=== PATIENT | male | born 1950 | race African-American/Black ===

== ENCOUNTER 2017-01-15 10:31 | Emergency (ER) | payer MEDICARE, MEDICAID ==
[~2017-01-15] VITALS: Ht 175.3 cm; Wt 97.0 kg
[~2017-01-15 10:31] MED LIST: ADV250 IH; ALBU8HFA IH; AMLO10TA55 PO; ARIP10TA14 PO; ASPI-556 PO; COMBIH IH; OMEP20TA86 PO; SIMV40TA5 PO; ZOLP10TA6 PO
[2017-01-15] MEDS ORDERED: DIVA125T PO (10:48)
[2017-01-15] MEDS ORDERED: QUET200T PO (10:48)
[2017-01-15] MEDS ORDERED: CLON.1 PO (10:48)
[2017-01-15] MEDS ORDERED: LIRA0.6P SQ (10:48)
[2017-01-15] MEDS ORDERED: ASPI-1061 PO (10:48)
[2017-01-15] MEDS ORDERED: METF500T4 PO (10:48)
[2017-01-15] MEDS ORDERED: CANA100T PO (10:48)
[2017-01-15] MEDS ORDERED: TRAZ-144 PO (10:48)
[2017-01-15] MEDS ORDERED: AMLO2.5T PO (10:48)
[2017-01-15] MEDS ORDERED: CLON2 PO (10:48)
[2017-01-15] MEDS ORDERED: TAMS0.4C32 PO (10:48)
[2017-01-15 10:52] LABS: GLUCOSE,POINT OF CARE 125 MG/DL (70-110)
[2017-01-15 11:07] LABS: BASOPHILS # (AUTO) 0.06 K/uL (0.00-0.20); BASOPHILS % (AUTO) 0.5 % (0.0-2.0); EOSINOPHILS % (AUTO) 0.77 % (1.0-6.0); HEMATOCRIT 51.7 % (41-53); LYMPHOCYTES # (AUTO) 3.1 K/uL (1.0-4.8); LYMPHOCYTES % (AUTO) 24.7 % (22.0-44.0); MEAN CORPUSCULAR HEMOGLOBIN 29.7 pg (26.0-34.0); MEAN CORPUSCULAR HGB CONC 32.8 G/dL (31.0-37.0); MEAN CORPUSCULAR VOLUME 91 fL (80-100); MONOCYTES # (AUTO) 0.9 K/uL (0.1-1.0); NEUTROPHILS # (AUTO) 8.6 K/uL (1.8-7.7); NEUTROPHILS % (AUTO) 67.1 % (40.0-70.0); PLATELET COUNT (AUTO) 257 K/uL (150-450); RED BLOOD CELL COUNT(AUTO) 5.71 MIL/uL (4.50-5.90); RED CELL DISTRIBUTION WIDTH 14.3 % (11.5-14.5); WHITE BLOOD COUNT (AUTO) 12.7 K/uL (4.5-11.0)
[2017-01-15 11:16] LABS: ANION GAP 13 mmol/L (8-16); CALCIUM, TOTAL 9.5 mg/dL (8.8-10.5); CARBON DIOXIDE 24 mmol/L (22-29); CHLORIDE 103 mmol/L (98-107); CREATININE 1.02 mg/dL (0.60-1.30); GLOMERULAR FILTR. RATE CALC > 60 mL/min (>60); POTASSIUM 3.6 mmol/L (3.5-5.1); SODIUM SERUM 140 mmol/L (136-145); UREA NITROGEN, BLOOD 15 mg/dL (7-18)
[2017-01-15 11:22] LABS: PROTHROMBIN TIME 10.8 SEC (9.4-11.6)
[2017-01-15 11:35] LABS: B-TYPE NATRIURETIC PEPTIDE 89 pg/mL (0-100)
[2017-01-15 11:42] LABS: ALANINE AMINOTRANSFERASE 19 U/L (12-78); ASPARTATE AMINOTRANSFERASE 21 U/L (15-37); BILIRUBIN,TOTAL 1.5 mg/dL (0.1-1.0); CREATINE KINASE MB 2.5 ng/mL (0-5); CREATINE KINASE, TOTAL 242 U/L (39-308); TOTAL PROTEIN, SERUM 7.4 g/dL (6.4-8.2)
[2017-01-15 12:01] LABS: APPEARANCE,URINE CLOUDY (CLEAR); GLUCOSE, URINE (UA) >=1000 mg/dL (NEGATIVE); KETONES,URINE 40 mg/dL (NEGATIVE); LEUKOCYTE ESTERASE ,URINE NEGATIVE (NEGATIVE); OCCULT BLOOD,URINE SMALL (NEGATIVE); PROTEIN,URINE SEE CONFIRM (NEGATIVE)
[2017-01-15 12:03] LABS: ADD UA MICROSCOPIC YES
[2017-01-15 12:10] LABS: SULFOSALICYLIC ACID,URINE 4+ (Negative)
[2017-01-15 12:13] LABS: SQUAMOUS EPITHELIAL CELL,UR Moderate /LPF (None Seen); WBC,URINE 51-100 /HPF (0-5)
[2017-01-15] MEDS ORDERED: LEVOFLOXACIN 500 MG/D5% WATER 100 ML IV ONE (13:15)
[2017-01-15] MEDS ORDERED: SODIUM CHLORIDE 0.9% 1,000 ML IV ONE (13:15)
[2017-01-15] MEDS ORDERED: CefTRIAXone 1 GM/DEXTROSE 50 ML IV ONE (13:15)
[2017-01-15 16:02] VITALS: BP 110/78
== END 2017-01-15 17:19 | disposition home or self-care (01) ==
LOC: EMS 10:33
DX: N39.0 Urinary tract infection, site not specified (principal); F17.210 Nicotine dependence, cigarettes, uncomplicated; F31.9 Bipolar disorder, unspecified; F25.9 Schizoaffective disorder, unspecified; I10 Essential (primary) hypertension; E11.9 Type 2 diabetes mellitus without complications; Z88.2 Allergy status to sulfonamides; Z79.82 Long term (current) use of aspirin; Z79.899 Other long term (current) drug therapy
CPT/HCPCS: 36415; 70450; 71010; 80053; 81001; 82550; 82553; 82962; 83880; 84484; 85025; 85610; 85730; 87086; 93005; 96365; 96367; 99285; J0696; J1956; J7030

== ENCOUNTER 2017-04-28 12:00 | Inpatient (IN) | payer MEDICARE, MEDICAID ==
[~2017-04-28] VITALS: Ht 182.9 cm; Wt 74.8 kg
[~2017-04-28 12:00] MED LIST changes: -ADV250 IH; -AMLO10TA55 PO; +AMLO2.5T PO; -ARIP10TA14 PO; -ASPI-556 PO; +ASPI81TA33 PO; +CANA100T PO; +CLON-570 PO; +CLON2 PO; -COMBIH IH; +DIVA125T PO; +LIRA0.6P SQ; +METF500T4 PO; -OMEP20TA86 PO; +QUET200T PO; -SIMV40TA5 PO; +TAMS0.4C32 PO; +TRAZ-144 PO; -ZOLP10TA6 PO
[2017-04-28] MEDS ORDERED: METF500T4 PO (12:27)
[2017-04-28] MEDS ORDERED: ACETAMINOPHEN 1000 MG/ISO-OSM 100 ML IV ONE (12:45)
[2017-04-28] MEDS ORDERED: SODIUM CHLORIDE 0.9% 3,000 ML IV ONE (12:45)
[2017-04-28 13:19] LABS: BASOPHILS # (AUTO) 0.03 K/uL (0.00-0.20); BASOPHILS % (AUTO) 0.1 % (0.0-2.0); EOSINOPHILS # (AUTO) 0.01 K/uL (0.00-0.70); EOSINOPHILS % (AUTO) 0.06 % (1.0-6.0); HEMATOCRIT 47.6 % (41-53); HEMOGLOBIN 15.8 g/dL (13.5-17.5); LYMPHOCYTES # (AUTO) 1.9 K/uL (1.0-4.8); LYMPHOCYTES % (AUTO) 10.3 % (22.0-44.0); MEAN CORPUSCULAR HEMOGLOBIN 30.3 pg (26.0-34.0); MEAN CORPUSCULAR HGB CONC 33.2 G/dL (31.0-37.0); MEAN CORPUSCULAR VOLUME 91 fL (80-100); MONOCYTES # (AUTO) 1.1 K/uL (0.1-1.0); MONOCYTES % (AUTO) 5.9 % (2.0-9.0); NEUTROPHILS # (AUTO) 15.7 K/uL (1.8-7.7); NEUTROPHILS % (AUTO) 83.7 % (40.0-70.0); PLATELET COUNT (AUTO) 398 K/uL (150-450); RED BLOOD CELL COUNT(AUTO) 5.22 MIL/uL (4.50-5.90); RED CELL DISTRIBUTION WIDTH 15.9 % (11.5-14.5); WHITE BLOOD COUNT (AUTO) 18.7 K/uL (4.5-11.0)
[2017-04-28 13:20] LABS: RBC MORPHOLOGY COMMENT NORMAL RBC MORPH
[2017-04-28 13:54] LABS: ALANINE AMINOTRANSFERASE 18 U/L (12-78); ALBUMIN 2.5 g/dL (3.4-5.0); ANION GAP 11 mmol/L (8-16); ASPARTATE AMINOTRANSFERASE 32 U/L (15-37); BILIRUBIN,TOTAL 0.5 mg/dL (0.1-1.0); CARBON DIOXIDE 26 mmol/L (22-29); CHLORIDE 106 mmol/L (98-107); CREATININE 1.19 mg/dL (0.60-1.30); GLOMERULAR FILTR. RATE CALC > 60 mL/min (>60); POTASSIUM 4.3 mmol/L (3.5-5.1); SODIUM SERUM 143 mmol/L (136-145); TOTAL PROTEIN, SERUM 7.5 g/dL (6.4-8.2); UREA NITROGEN, BLOOD 30 mg/dL (7-18)
[2017-04-28 13:55] LABS: LACTIC ACID 3.1 mmol/L (0.4-2.0)
[2017-04-28] MEDS ORDERED: INSULIN REGULAR, HUMAN 100 UNITS/ML IVP ONE (14:15)
[2017-04-28 14:17] LABS: VALPROIC ACID < 3 mcg/mL (50-100)
[2017-04-28] MEDS ORDERED: WATER FOR INJECTION STERILE IV ONE ×2 (14:30)
[2017-04-28] MEDS ORDERED: ALTEPLASE PER STROKE PROTOCOL CLINICAL ONE ×2 (14:30)
[2017-04-28] MEDS ORDERED: ALTEPLASE IV ONE ×2 (14:30)
[2017-04-28 15:09] LABS: REFLEX LACTIC ACID? YES YES
[2017-04-28] MEDS ORDERED: CIPROFLOXACIN 400 MG/D5% WATER 200 ML IV ONE (15:45)
[2017-04-28 16:15] VITALS: BP 80/37
[2017-04-28] MEDS ORDERED: BISACODYL 10 MG RECTAL RECTAL SUPPOSITORY PR PRN (16:30)
[2017-04-28] MEDS ORDERED: ONDANSETRON HCL 4 MG/2 ML VIAL IVP PRN (16:30)
[2017-04-28] MEDS ORDERED: MAGNESIUM HYDROXIDE SUSPENSION 30 ML UDCUP PO PRN (16:30)
[2017-04-28] MEDS ORDERED: DEXTROSE 50%-WATER 25 GM/50 ML SYRINGE IVP PRN (16:30)
[2017-04-28] MEDS ORDERED: IPRATROPIUM BROMIDE 0.5 MG/2.5 ML NEB SOLUTION NEB PRN (16:30)
[2017-04-28] MEDS ORDERED: ZOLPIDEM TARTRATE 5 MG TABLET PO PRN (16:30)
[2017-04-28] MEDS ORDERED: ALBUTEROL SULFATE 2.5 MG/0.5 ML NEB SOLUTION NEB PRN (16:30)
[2017-04-28] MEDS ORDERED: VANCOMYCIN HCL 1 GM/D5% WATER 200 ML IV ONE (17:00)
[2017-04-28] MEDS ORDERED: INFLUENZA VIRUS VACCINE QVS 2017-18 (3YR+)/PF 60 MCG/0.5 ML SYRINGE IM ONE (17:15)
[2017-04-28] MEDS ORDERED: -PHARMACY VACCINE NOTE- MISC ONE ×2 (17:15)
[2017-04-28] MEDS: SODIUM CHLORIDE 0.9% 1,000 ML IV SCH (17:41)
[2017-04-28 17:49] LABS: GLUCOSE,POINT OF CARE 271 MG/DL (70-110)
[2017-04-28] MEDS: PIPERACILLIN/TAZO 3.375 GM/D5W 50 ML IV SCH (18:15)
[2017-04-28] MEDS: INSULIN ASPART 100 UNITS/ML SQ PRN ×2 (18:16→22:14)
[2017-04-28 20:00] VITALS: BP 112/76
[2017-04-28] MEDS: DOCUSATE SODIUM 100 MG CAPSULE PO SCH (21:00)
[2017-04-29] VITALS: BP 97/71
[2017-04-29] MEDS: PIPERACILLIN/TAZO 3.375 GM/D5W 50 ML IV SCH ×4 (00:29→17:26)
[2017-04-29] MEDS: HEPARIN SODIUM,PORCINE 5,000 UNITS/ML VIAL SQ SCH ×3 (00:29→16:58)
[2017-04-29] MEDS: ACETAMINOPHEN 650 MG RECTAL SUPPOSITORY PR PRN ×2 (02:58→06:10)
[2017-04-29 04:00] VITALS: BP 134/93
[2017-04-29] MEDS: SODIUM CHLORIDE 0.9% 1,000 ML IV SCH (05:10)
[2017-04-29 05:52] LABS: ALANINE AMINOTRANSFERASE 11 U/L (12-78); ALBUMIN 2.2 g/dL (3.4-5.0); ANION GAP 8 mmol/L (8-16); ASPARTATE AMINOTRANSFERASE 19 U/L (15-37); BILIRUBIN,TOTAL 0.7 mg/dL (0.1-1.0); CALCIUM, TOTAL 9.4 mg/dL (8.8-10.5); CARBON DIOXIDE 26 mmol/L (22-29); CHLORIDE 113 mmol/L (98-107); CREATININE 0.88 mg/dL (0.60-1.30); GLOMERULAR FILTR. RATE CALC > 60 mL/min (>60); POTASSIUM 3.7 mmol/L (3.5-5.1); SODIUM SERUM 147 mmol/L (136-145); TOTAL PROTEIN, SERUM 6.5 g/dL (6.4-8.2); UREA NITROGEN, BLOOD 23 mg/dL (7-18)
[2017-04-29 06:23] LABS: HEMATOCRIT 44.5 % (41-53); HEMOGLOBIN 14.6 g/dL (13.5-17.5); MEAN CORPUSCULAR HEMOGLOBIN 30.3 pg (26.0-34.0); MEAN CORPUSCULAR HGB CONC 32.7 G/dL (31.0-37.0); MEAN CORPUSCULAR VOLUME 93 fL (80-100); PLATELET COUNT (AUTO) 384 K/uL (150-450); RED CELL DISTRIBUTION WIDTH 16.2 % (11.5-14.5); WHITE BLOOD COUNT (AUTO) 23.2 K/uL (4.5-11.0)
[2017-04-29 06:52] LABS: GLUCOSE COMMENT 1 Received Meds; GLUCOSE,POINT OF CARE 284 MG/DL (70-110)
[2017-04-29 06:53] LABS: GLUCOSE COMMENT 1 Received Meds; GLUCOSE,POINT OF CARE 253 MG/DL (70-110)
[2017-04-29] MEDS: INSULIN ASPART 100 UNITS/ML SQ PRN ×3 (07:12→21:57)
[2017-04-29 08:00] VITALS: BP 121/89
[2017-04-29] MEDS ORDERED: VANCOMYCIN HCL 1 GM/D5% WATER 200 ML IV SCH (08:00)
[2017-04-29] MEDS ORDERED: ASPIRIN 81 MG EC TABLET PO SCH (09:00)
[2017-04-29] MEDS: DOCUSATE SODIUM 100 MG CAPSULE PO SCH ×2 (09:00→21:00)
[2017-04-29] MEDS: OXYGEN THERAPY IH SCH ×2 (09:01→21:46)
[2017-04-29] MEDS: VANCOMYCIN HCL 1.25 GM in DEXTROSE 5%-WATER 250 ML IV SCH ×2 (09:10→21:45)
[2017-04-29] MEDS: PANTOPRAZOLE SODIUM 40 MG/VIAL IVP SCH (09:12)
[2017-04-29 10:17] LABS: BAND NEUTROPHILS % (MANUAL) 16 % (1-5); LYMPHOCYTES % (MANUAL) 14 % (22-44); RBC MORPHOLOGY COMMENT NORMAL RBC MORPH; TOTAL CELLS COUNTED 100
[2017-04-29] MEDS: MULTIVITAMINS WITH MINERALS, THERAPEUTIC 15 ML UDCUP NG SCH (10:45)
[2017-04-29 12:00] VITALS: BP 121/89
[2017-04-29 16:00] VITALS: BP 96/70
[2017-04-29] MEDS ORDERED: MetroNIDAZOLE 500 MG TABLET PO SCH (18:30)
[2017-04-29] MEDS ORDERED: SODIUM CHLORIDE 0.45% 1,000 ML IV ONE (18:30)
[2017-04-29 19:41] LABS: THYROID STIMULATING HORMONE 1.44 uIU/mL (0.36-3.74)
[2017-04-29 20:00] VITALS: BP 154/124
[2017-04-29 20:07] LABS: GLUCOSE COMMENT 1 Received Meds; GLUCOSE,POINT OF CARE 182 MG/DL (70-110)
[2017-04-29 20:13] LABS: GLUCOSE COMMENT 1 Received Meds; GLUCOSE,POINT OF CARE 222 MG/DL (70-110)
[2017-04-29 20:13] LABS: GLUCOSE,POINT OF CARE 224 MG/DL (70-110)
[2017-04-30] VITALS: BP 91/61
[2017-04-30] MEDS: VANCOMYCIN HCL 250 MG/5 ML SOLUTION ORAL.SYG PO SCH ×4 (00:04→17:31)
[2017-04-30] MEDS: HEPARIN SODIUM,PORCINE 5,000 UNITS/ML VIAL SQ SCH ×3 (00:04→17:01)
[2017-04-30 02:24] LABS: APPEARANCE,URINE CLOUDY (CLEAR); GLUCOSE, URINE (UA) NEGATIVE (NEGATIVE); KETONES,URINE NEGATIVE (NEGATIVE); LEUKOCYTE ESTERASE ,URINE TRACE (NEGATIVE); OCCULT BLOOD,URINE NEGATIVE (NEGATIVE); PROTEIN,URINE SEE CONFIRM (NEGATIVE)
[2017-04-30 02:32] LABS: SULFOSALICYLIC ACID,URINE 3+ (Negative)
[2017-04-30 02:33] LABS: RBC,URINE 0-2 /HPF (0-2); SQUAMOUS EPITHELIAL CELL,UR Many /LPF (None Seen)
[2017-04-30 02:34] LABS: HYALINE CASTS, URINE 0-2 /LPF (None Seen)
[2017-04-30 04:00] VITALS: BP 110/63
[2017-04-30 05:02] LABS: BASOPHILS # (AUTO) 0.04 K/uL (0.00-0.20); BASOPHILS % (AUTO) 0.2 % (0.0-2.0); EOSINOPHILS # (AUTO) 0.11 K/uL (0.00-0.70); EOSINOPHILS % (AUTO) 0.48 % (1.0-6.0); HEMATOCRIT 39.6 % (41-53); HEMOGLOBIN 13.2 g/dL (13.5-17.5); LYMPHOCYTES # (AUTO) 1.7 K/uL (1.0-4.8); LYMPHOCYTES % (AUTO) 7.5 % (22.0-44.0); MEAN CORPUSCULAR HEMOGLOBIN 30.7 pg (26.0-34.0); MEAN CORPUSCULAR HGB CONC 33.3 G/dL (31.0-37.0); MEAN CORPUSCULAR VOLUME 92 fL (80-100); MONOCYTES # (AUTO) 0.3 K/uL (0.1-1.0); MONOCYTES % (AUTO) 1.1 % (2.0-9.0); NEUTROPHILS # (AUTO) 20.6 K/uL (1.8-7.7); PLATELET COUNT (AUTO) 341 K/uL (150-450); RED BLOOD CELL COUNT(AUTO) 4.29 MIL/uL (4.50-5.90); RED CELL DISTRIBUTION WIDTH 16.1 % (11.5-14.5); WHITE BLOOD COUNT (AUTO) 22.7 K/uL (4.5-11.0)
[2017-04-30 05:11] LABS: ANION GAP 9 mmol/L (8-16); CALCIUM, TOTAL 9.2 mg/dL (8.8-10.5); CARBON DIOXIDE 24 mmol/L (22-29); CHLORIDE 112 mmol/L (98-107); GLOMERULAR FILTR. RATE CALC > 60 mL/min (>60); POTASSIUM 3.5 mmol/L (3.5-5.1); SODIUM SERUM 145 mmol/L (136-145); UREA NITROGEN, BLOOD 25 mg/dL (7-18)
[2017-04-30] MEDS: MetroNIDAZOLE 500 MG/NACL 100 ML IV SCH ×3 (06:08→22:22)
[2017-04-30] MEDS: INSULIN ASPART 100 UNITS/ML SQ PRN ×3 (06:30→17:34)
[2017-04-30 06:47] LABS: NEUTROPHILS % (AUTO) 90.7 % (40.0-70.0)
[2017-04-30 08:00] VITALS: BP 112/72
[2017-04-30] MEDS: ASPIRIN 81 MG EC TABLET PO SCH (09:14)
[2017-04-30] MEDS: DOCUSATE SODIUM 100 MG CAPSULE PO SCH ×2 (09:14→21:00)
[2017-04-30] MEDS: PANTOPRAZOLE SODIUM 40 MG/VIAL IVP SCH (09:17)
[2017-04-30] MEDS: OXYGEN THERAPY IH SCH ×2 (09:17→21:38)
[2017-04-30] MEDS: AMINO ACIDS/PROTEIN HYDROLYS 30 ML TUBE PO SCH ×2 (09:17→13:37)
[2017-04-30 09:33] LABS: RBC MORPHOLOGY COMMENT NORMAL RBC MORPH
[2017-04-30] MEDS: MULTIVITAMINS WITH MINERALS, THERAPEUTIC 15 ML UDCUP NG SCH (11:55)
[2017-04-30 12:00] VITALS: BP 90/62
[2017-04-30 12:42] LABS: GLUCOSE,POINT OF CARE 244 MG/DL (70-110)
[2017-04-30 12:42] LABS: GLUCOSE,POINT OF CARE 167 MG/DL (70-110)
[2017-04-30] MEDS: ACETAMINOPHEN 325 MG TABLET PO PRN ×2 (13:42→17:45)
[2017-04-30 16:00] VITALS: BP 108/60
[2017-04-30 19:52] LABS: GLUCOSE,POINT OF CARE 221 MG/DL (70-110)
[2017-04-30 20:00] VITALS: BP 95/60
[2017-05-01] VITALS (11 sets, daily range): BP systolic 94–124; BP diastolic 62–91
[2017-05-01] MEDS: VANCOMYCIN HCL 250 MG/5 ML SOLUTION ORAL.SYG PO SCH ×4 (00:23→17:21)
[2017-05-01] MEDS: HEPARIN SODIUM,PORCINE 5,000 UNITS/ML VIAL SQ SCH ×3 (00:23→15:23)
[2017-05-01] MEDS: ACETAMINOPHEN 325 MG TABLET PO PRN ×6 (00:40→20:58)
[2017-05-01] MEDS: INSULIN ASPART 100 UNITS/ML SQ PRN ×4 (00:41→19:55)
[2017-05-01 02:57] LABS: GLUCOSE,POINT OF CARE 259 MG/DL (70-110)
[2017-05-01 02:57] LABS: GLUCOSE COMMENT 1 Received Meds; GLUCOSE,POINT OF CARE 215 MG/DL (70-110)
[2017-05-01 05:02] LABS: HEMATOCRIT 36.9 % (41-53); HEMOGLOBIN 12.2 g/dL (13.5-17.5); MEAN CORPUSCULAR HEMOGLOBIN 30.7 pg (26.0-34.0); MEAN CORPUSCULAR HGB CONC 33.1 G/dL (31.0-37.0); MEAN CORPUSCULAR VOLUME 93 fL (80-100); PLATELET COUNT (AUTO) 327 K/uL (150-450); RED BLOOD CELL COUNT(AUTO) 3.98 MIL/uL (4.50-5.90); RED CELL DISTRIBUTION WIDTH 15.5 % (11.5-14.5); WHITE BLOOD COUNT (AUTO) 21.7 K/uL (4.5-11.0)
[2017-05-01 05:08] LABS: ANION GAP 5 mmol/L (8-16); CALCIUM, TOTAL 8.8 mg/dL (8.8-10.5); CARBON DIOXIDE 29 mmol/L (22-29); CHLORIDE 110 mmol/L (98-107); CREATININE 0.85 mg/dL (0.60-1.30); GLOMERULAR FILTR. RATE CALC > 60 mL/min (>60); POTASSIUM 3.6 mmol/L (3.5-5.1); SODIUM SERUM 144 mmol/L (136-145); UREA NITROGEN, BLOOD 25 mg/dL (7-18)
[2017-05-01] MEDS: MetroNIDAZOLE 500 MG/NACL 100 ML IV SCH ×3 (05:12→22:43)
[2017-05-01 05:37] LABS: BAND NEUTROPHILS % (MANUAL) 12 % (1-5); LYMPHOCYTES % (MANUAL) 8 % (22-44); RBC MORPHOLOGY COMMENT NORMAL RBC MORPH; TOTAL CELLS COUNTED 100
[2017-05-01 05:40] LABS: LACTIC ACID 2.8 mmol/L (0.4-2.0)
[2017-05-01 06:50] LABS: REFLEX LACTIC ACID? YES YES
[2017-05-01] MEDS: DOCUSATE SODIUM 100 MG CAPSULE PO SCH ×2 (08:00→20:57)
[2017-05-01] MEDS: PANTOPRAZOLE SODIUM 40 MG/VIAL IVP SCH (08:00)
[2017-05-01] MEDS: MULTIVITAMINS WITH MINERALS, THERAPEUTIC 15 ML UDCUP NG SCH (08:00)
[2017-05-01] MEDS: ASPIRIN 81 MG EC TABLET PO SCH (08:01)
[2017-05-01 08:12] LABS: GLUCOSE COMMENT 1 Received Meds; GLUCOSE,POINT OF CARE 229 MG/DL (70-110)
[2017-05-01] MEDS: AMINO ACIDS/PROTEIN HYDROLYS 30 ML TUBE PO SCH ×2 (08:36→11:56)
[2017-05-01] MEDS: OXYGEN THERAPY IH SCH ×2 (08:38→20:57)
[2017-05-01] MEDS ORDERED: SODIUM CHLORIDE 0.9% 0 ML ONE (20:50)
[2017-05-01] MEDS ORDERED: IOVERSOL 320 MG/ML 100 ML VIAL ONE (20:50)
[2017-05-01] MEDS ORDERED: BARIUM SULFATE 0.1% SUSPENSION 450 ML BOTTLE ONE (20:50)
[2017-05-01] MEDS ORDERED: SODIUM CHLORIDE 0.9% 250 ML IV ONE (22:45)
[2017-05-01] MEDS ORDERED: SODIUM CHLORIDE 0.9% 100 ML ONE (23:16)
[2017-05-01] MEDS ORDERED: IOVERSOL 350 MG/ML 100 ML VIAL ONE (23:16)
[2017-05-02] VITALS (7 sets, daily range): BP systolic 108–117; BP diastolic 75–87
[2017-05-02] MEDS: HEPARIN SODIUM,PORCINE 5,000 UNITS/ML VIAL SQ SCH ×3 (01:00→16:59)
[2017-05-02] MEDS: VANCOMYCIN HCL 250 MG/5 ML SOLUTION ORAL.SYG PO SCH ×4 (01:00→17:57)
[2017-05-02] MEDS: INSULIN ASPART 100 UNITS/ML SQ PRN ×4 (01:01→17:58)
[2017-05-02] MEDS: ACETAMINOPHEN 325 MG TABLET PO PRN (04:44)
[2017-05-02 05:09] LABS: BASOPHILS % (AUTO) 0.1 % (0.0-2.0); EOSINOPHILS % (AUTO) 1.4 % (1.0-6.0); HEMATOCRIT 38.8 % (41-53); HEMOGLOBIN 12.8 g/dL (13.5-17.5); LYMPHOCYTES % (AUTO) 4.9 % (22.0-44.0); MEAN CORPUSCULAR HEMOGLOBIN 30.5 pg (26.0-34.0); MEAN CORPUSCULAR HGB CONC 33.1 G/dL (31.0-37.0); MEAN CORPUSCULAR VOLUME 92 fL (80-100); MONOCYTES # (AUTO) 0.1 K/uL (0.1-1.0); MONOCYTES % (AUTO) 0.7 % (2.0-9.0); NEUTROPHILS # (AUTO) 18.5 K/uL (1.8-7.7); PLATELET COUNT (AUTO) 326 K/uL (150-450); RED BLOOD CELL COUNT(AUTO) 4.21 MIL/uL (4.50-5.90); RED CELL DISTRIBUTION WIDTH 15.4 % (11.5-14.5); WHITE BLOOD COUNT (AUTO) 19.9 K/uL (4.5-11.0)
[2017-05-02 05:15] LABS: ANION GAP 7 mmol/L (8-16); CALCIUM, TOTAL 9.1 mg/dL (8.8-10.5); CARBON DIOXIDE 27 mmol/L (22-29); CHLORIDE 107 mmol/L (98-107); CREATININE 0.65 mg/dL (0.60-1.30); GLOMERULAR FILTR. RATE CALC > 60 mL/min (>60); POTASSIUM 3.4 mmol/L (3.5-5.1); SODIUM SERUM 141 mmol/L (136-145); UREA NITROGEN, BLOOD 15 mg/dL (7-18)
[2017-05-02] MEDS: MetroNIDAZOLE 500 MG/NACL 100 ML IV SCH ×3 (05:21→21:17)
[2017-05-02 05:26] LABS: NEUTROPHILS % (AUTO) 92.9 % (40.0-70.0)
[2017-05-02 06:08] LABS: RBC MORPHOLOGY COMMENT NORMAL RBC MORPH
[2017-05-02 08:17] LABS: GLUCOSE COMMENT 1 Received Meds; GLUCOSE,POINT OF CARE 295 MG/DL (70-110)
[2017-05-02 08:17] LABS: GLUCOSE,POINT OF CARE 249 MG/DL (70-110)
[2017-05-02 08:22] LABS: GLUCOSE COMMENT 1 Received Meds; GLUCOSE,POINT OF CARE 236 MG/DL (70-110)
[2017-05-02 08:22] LABS: GLUCOSE COMMENT 1 Received Meds; GLUCOSE,POINT OF CARE 193 MG/DL (70-110)
[2017-05-02] MEDS: DOCUSATE SODIUM 100 MG CAPSULE PO SCH ×2 (09:00→20:39)
[2017-05-02] MEDS: PANTOPRAZOLE SODIUM 40 MG/VIAL IVP SCH (09:38)
[2017-05-02] MEDS: ASPIRIN 81 MG EC TABLET PO SCH (09:39)
[2017-05-02] MEDS: MULTIVITAMINS WITH MINERALS, THERAPEUTIC 15 ML UDCUP NG SCH (09:39)
[2017-05-02] MEDS: AMINO ACIDS/PROTEIN HYDROLYS 30 ML TUBE PO SCH ×2 (09:40→12:36)
[2017-05-02] MEDS: OXYGEN THERAPY IH SCH ×2 (09:41→20:38)
[2017-05-02 14:43] LABS: GLUCOSE COMMENT 1 Juice/Food/D50 Given; GLUCOSE,POINT OF CARE 278 MG/DL (70-110)
[2017-05-02] MEDS ORDERED: POTASSIUM CHLORIDE 20 MEQ ER TABLET PO PRN (17:45)
[2017-05-02] MEDS: POTASSIUM CHL 10 MEQ/WATER 50 ML IV PRN ×3 (17:57→20:39)
[2017-05-02 19:00] LABS: ABG A-A DIFF O2 134.9 mmHg (10-20.0); ABG BASE EXCESS 2.3 mmol/L (-2.0-3.0); ABG HCO3 26.8 mmol/L (22.0-26.0); ABG OXYHEMOGLOBIN 94.9 % (94.0-100.0); ABG PCO2 34 mmHg (35-45); ABG PH 7.494 (7.35-7.450); ALLEN TEST, BLOOD GAS POS
[2017-05-02] MEDS ORDERED: SODIUM CHLORIDE 0.9% 250 ML IV ONE (20:36)
[2017-05-02 23:32] LABS: GLUCOSE,POINT OF CARE 280 MG/DL (70-110)
[2017-05-03] VITALS: BP 117/87
[2017-05-03] MEDS: ACETAMINOPHEN 325 MG TABLET PO PRN ×2 (00:06→06:47)
[2017-05-03] MEDS: HEPARIN SODIUM,PORCINE 5,000 UNITS/ML VIAL SQ SCH ×3 (00:06→16:36)
[2017-05-03] MEDS: VANCOMYCIN HCL 250 MG/5 ML SOLUTION ORAL.SYG PO SCH ×4 (00:06→18:21)
[2017-05-03] MEDS: INSULIN ASPART 100 UNITS/ML SQ PRN ×4 (00:07→18:22)
[2017-05-03 04:00] VITALS: BP 132/96
[2017-05-03 05:45] LABS: APPEARANCE,URINE CLOUDY (CLEAR); GLUCOSE, URINE (UA) >=1000 mg/dL (NEGATIVE); KETONES,URINE NEGATIVE (NEGATIVE); LEUKOCYTE ESTERASE ,URINE NEGATIVE (NEGATIVE); OCCULT BLOOD,URINE NEGATIVE (NEGATIVE); PROTEIN,URINE SEE CONFIRM (NEGATIVE)
[2017-05-03 05:49] LABS: ADD UA MICROSCOPIC YES
[2017-05-03 06:04] LABS: RBC,URINE 0-2 /HPF (0-2); SULFOSALICYLIC ACID,URINE 1+ (Negative); WBC,URINE 0-2 /HPF (0-5)
[2017-05-03] MEDS: MetroNIDAZOLE 500 MG/NACL 100 ML IV SCH ×3 (06:45→22:15)
[2017-05-03 06:47] LABS: GLUCOSE COMMENT 1 Received Meds; GLUCOSE,POINT OF CARE 271 MG/DL (70-110)
[2017-05-03 08:00] VITALS: BP 136/86
[2017-05-03] MEDS: DOCUSATE SODIUM 100 MG CAPSULE PO SCH ×2 (08:52→21:00)
[2017-05-03] MEDS: MULTIVITAMINS WITH MINERALS, THERAPEUTIC 15 ML UDCUP NG SCH (08:59)
[2017-05-03] MEDS: PANTOPRAZOLE SODIUM 40 MG/VIAL IVP SCH (08:59)
[2017-05-03] MEDS: AMINO ACIDS/PROTEIN HYDROLYS 30 ML TUBE PO SCH ×2 (08:59→12:54)
[2017-05-03] MEDS: OXYGEN THERAPY IH SCH ×2 (08:59→22:16)
[2017-05-03] MEDS: ASPIRIN 81 MG EC TABLET PO SCH (09:01)
[2017-05-03 11:28] LABS: HEMATOCRIT 39.7 % (41-53); HEMOGLOBIN 12.8 g/dL (13.5-17.5); MEAN CORPUSCULAR HGB CONC 32.3 G/dL (31.0-37.0); MEAN CORPUSCULAR VOLUME 93 fL (80-100); PLATELET COUNT (AUTO) 299 K/uL (150-450); RED BLOOD CELL COUNT(AUTO) 4.27 MIL/uL (4.50-5.90); RED CELL DISTRIBUTION WIDTH 15.7 % (11.5-14.5); WHITE BLOOD COUNT (AUTO) 16.9 K/uL (4.5-11.0)
[2017-05-03 11:39] LABS: ANION GAP 5 mmol/L (8-16); CALCIUM, TOTAL 8.6 mg/dL (8.8-10.5); CARBON DIOXIDE 28 mmol/L (22-29); CHLORIDE 107 mmol/L (98-107); GLOMERULAR FILTR. RATE CALC > 60 mL/min (>60); SODIUM SERUM 140 mmol/L (136-145); UREA NITROGEN, BLOOD 15 mg/dL (7-18)
[2017-05-03 11:51] LABS: BAND NEUTROPHILS % (MANUAL) 23 % (1-5); LYMPHOCYTES % (MANUAL) 9 % (22-44); RBC MORPHOLOGY COMMENT NORMAL RBC MORPH; TOTAL CELLS COUNTED 100
[2017-05-03 12:00] VITALS: BP 136/86
[2017-05-03 14:23] LABS: GLUCOSE,POINT OF CARE 284 MG/DL (70-110)
[2017-05-03 16:00] VITALS: BP 135/78
[2017-05-03] MEDS ORDERED: SODIUM CHLORIDE 0.9% 0 ML IV ONE (17:50)
[2017-05-03] MEDS ORDERED: SODIUM CHLORIDE 0.9% 1,000 ML IV ONE (19:33)
[2017-05-03 20:00] VITALS: BP 92/60
[2017-05-04] VITALS (8 sets, daily range): BP systolic 111–138; BP diastolic 75–91
[2017-05-04] MEDS ORDERED: SODIUM CHLORIDE 0.9% 250 ML IV ONE (00:34)
[2017-05-04] MEDS: HEPARIN SODIUM,PORCINE 5,000 UNITS/ML VIAL SQ SCH ×3 (01:36→16:53)
[2017-05-04] MEDS: VANCOMYCIN HCL 250 MG/5 ML SOLUTION ORAL.SYG PO SCH ×4 (01:36→17:35)
[2017-05-04] MEDS: INSULIN ASPART 100 UNITS/ML SQ PRN ×3 (01:37→13:00)
[2017-05-04 05:25] LABS: HEMATOCRIT 38.2 % (41-53); HEMOGLOBIN 12.7 g/dL (13.5-17.5); MEAN CORPUSCULAR HEMOGLOBIN 30.4 pg (26.0-34.0); MEAN CORPUSCULAR HGB CONC 33.2 G/dL (31.0-37.0); MEAN CORPUSCULAR VOLUME 91 fL (80-100); PLATELET COUNT (AUTO) 358 K/uL (150-450); RED BLOOD CELL COUNT(AUTO) 4.18 MIL/uL (4.50-5.90); RED CELL DISTRIBUTION WIDTH 15.4 % (11.5-14.5); WHITE BLOOD COUNT (AUTO) 14.6 K/uL (4.5-11.0)
[2017-05-04 05:27] LABS: ANION GAP 5 mmol/L (8-16); CALCIUM, TOTAL 8.8 mg/dL (8.8-10.5); CARBON DIOXIDE 28 mmol/L (22-29); CHLORIDE 105 mmol/L (98-107); GLOMERULAR FILTR. RATE CALC > 60 mL/min (>60); POTASSIUM 3.7 mmol/L (3.5-5.1); SODIUM SERUM 138 mmol/L (136-145); UREA NITROGEN, BLOOD 11 mg/dL (7-18)
[2017-05-04] MEDS: MetroNIDAZOLE 500 MG/NACL 100 ML IV SCH ×3 (06:15→23:29)
[2017-05-04 07:27] LABS: BAND NEUTROPHILS % (MANUAL) 4 % (1-5); LYMPHOCYTES % (MANUAL) 9 % (22-44); REACTIVE LYMPHOCYTES 1 % (0-0); TOTAL CELLS COUNTED 100
[2017-05-04] MEDS: DOCUSATE SODIUM 100 MG CAPSULE PO SCH ×2 (08:02→20:05)
[2017-05-04] MEDS: MULTIVITAMINS WITH MINERALS, THERAPEUTIC 15 ML UDCUP NG SCH (08:38)
[2017-05-04] MEDS: AMINO ACIDS/PROTEIN HYDROLYS 30 ML TUBE PO SCH ×2 (08:38→12:55)
[2017-05-04] MEDS: PANTOPRAZOLE SODIUM 40 MG/VIAL IVP SCH (08:38)
[2017-05-04] MEDS: ASPIRIN 81 MG EC TABLET PO SCH (08:38)
[2017-05-04] MEDS: OXYGEN THERAPY IH SCH ×2 (12:55→20:04)
[2017-05-04] MEDS ORDERED: DEXTROSE 50%-WATER 25 GM/50 ML SYRINGE IVP PRN (16:00)
[2017-05-04 17:33] LABS: GLUCOSE,POINT OF CARE 266 MG/DL (70-110)
[2017-05-04] MEDS: INSULIN REGULAR, HUMAN 100 UNITS/ML SQ PRN ×2 (17:36→23:35)
[2017-05-04] MEDS: HYPROMELLOSE 0.5% 15 ML OPHTHALMIC SOLUTION OU SCH (18:45)
[2017-05-04] MEDS: DIVALPROEX SODIUM 125 MG DR TABLET PO SCH (20:04)
[2017-05-04] MEDS: CloNIDine HCL 0.1 MG TABLET PO SCH (20:04)
[2017-05-04] MEDS ORDERED: SODIUM CHLORIDE 0.9% 1,000 ML IV ONE (20:33)
[2017-05-04] MEDS: ACETAMINOPHEN 325 MG TABLET PO PRN (23:29)
[2017-05-05] MEDS: VANCOMYCIN HCL 250 MG/5 ML SOLUTION ORAL.SYG PO SCH ×4 (00:11→17:11)
[2017-05-05] MEDS: HEPARIN SODIUM,PORCINE 5,000 UNITS/ML VIAL SQ SCH ×3 (00:11→17:10)
[2017-05-05 04:19] VITALS: BP 121/85
[2017-05-05] MEDS: HYPROMELLOSE 0.5% 15 ML OPHTHALMIC SOLUTION OU SCH ×4 (05:21→17:10)
[2017-05-05] MEDS: MetroNIDAZOLE 500 MG/NACL 100 ML IV SCH ×3 (05:24→21:12)
[2017-05-05] MEDS: INSULIN REGULAR, HUMAN 100 UNITS/ML SQ PRN ×3 (05:25→18:35)
[2017-05-05] MEDS ORDERED: CANAGLIFLOZIN 100 MG TABLET PO SCH (06:30)
[2017-05-05 06:32] LABS: BASOPHILS # (AUTO) 0.04 K/uL (0.00-0.20); BASOPHILS % (AUTO) 0.3 % (0.0-2.0); EOSINOPHILS # (AUTO) 0.19 K/uL (0.00-0.70); HEMATOCRIT 36.4 % (41-53); LYMPHOCYTES # (AUTO) 1.7 K/uL (1.0-4.8); LYMPHOCYTES % (AUTO) 11.5 % (22.0-44.0); MEAN CORPUSCULAR HEMOGLOBIN 30.3 pg (26.0-34.0); MEAN CORPUSCULAR HGB CONC 32.9 G/dL (31.0-37.0); MEAN CORPUSCULAR VOLUME 92 fL (80-100); MONOCYTES # (AUTO) 0.9 K/uL (0.1-1.0); MONOCYTES % (AUTO) 5.9 % (2.0-9.0); NEUTROPHILS # (AUTO) 11.9 K/uL (1.8-7.7); PLATELET COUNT (AUTO) 400 K/uL (150-450); RED BLOOD CELL COUNT(AUTO) 3.95 MIL/uL (4.50-5.90); RED CELL DISTRIBUTION WIDTH 15.5 % (11.5-14.5); WHITE BLOOD COUNT (AUTO) 14.7 K/uL (4.5-11.0)
[2017-05-05 06:49] LABS: ANION GAP 6 mmol/L (8-16); CALCIUM, TOTAL 8.5 mg/dL (8.8-10.5); CARBON DIOXIDE 27 mmol/L (22-29); CHLORIDE 102 mmol/L (98-107); CREATININE 0.52 mg/dL (0.60-1.30); GLOMERULAR FILTR. RATE CALC > 60 mL/min (>60); POTASSIUM 3.7 mmol/L (3.5-5.1); SODIUM SERUM 135 mmol/L (136-145); UREA NITROGEN, BLOOD 13 mg/dL (7-18)
[2017-05-05 08:04] VITALS: BP 123/85
[2017-05-05 08:27] LABS: GLUCOSE,POINT OF CARE 252 MG/DL (70-110)
[2017-05-05 08:28] LABS: GLUCOSE COMMENT 1 Received Meds; GLUCOSE,POINT OF CARE 267 MG/DL (70-110)
[2017-05-05 08:28] LABS: GLUCOSE COMMENT 1 Received Meds; GLUCOSE,POINT OF CARE 254 MG/DL (70-110)
[2017-05-05 08:28] LABS: GLUCOSE,POINT OF CARE 232 MG/DL (70-110)
[2017-05-05] MEDS ORDERED: LIRAGLUTIDE 1.8 MG SQ SCH (09:00)
[2017-05-05] MEDS: DOCUSATE SODIUM 100 MG CAPSULE PO SCH ×2 (09:00→20:26)
[2017-05-05] MEDS: TAMSULOSIN HCL 0.4 MG CAPSULE PO SCH (09:09)
[2017-05-05] MEDS: PANTOPRAZOLE SODIUM 40 MG/VIAL IVP SCH (09:09)
[2017-05-05] MEDS: MULTIVITAMINS WITH MINERALS, THERAPEUTIC 15 ML UDCUP NG SCH (09:09)
[2017-05-05] MEDS: ClonazePAM 0.5 MG TABLET PO SCH (09:10)
[2017-05-05] MEDS: ASPIRIN 81 MG EC TABLET PO SCH (09:10)
[2017-05-05] MEDS: DIVALPROEX SODIUM 125 MG DR TABLET PO SCH ×3 (09:10→20:27)
[2017-05-05] MEDS: AmLODIPine BESYLATE 2.5 MG TABLET PO SCH (09:20)
[2017-05-05] MEDS: OXYGEN THERAPY IH SCH ×2 (09:20→20:27)
[2017-05-05] MEDS: AMINO ACIDS/PROTEIN HYDROLYS 30 ML TUBE PO SCH ×2 (10:27→12:52)
[2017-05-05 11:19] VITALS: BP 126/78
[2017-05-05] MEDS: CloNIDine HCL 0.1 MG TABLET PO SCH ×2 (12:52→20:27)
[2017-05-05 15:47] LABS: GLUCOSE,POINT OF CARE 267 MG/DL (70-110)
[2017-05-05 16:29] VITALS: BP 115/71
[2017-05-05 20:03] VITALS: BP 139/64
[2017-05-05] MEDS: ACETAMINOPHEN 325 MG TABLET PO PRN (21:14)
[2017-05-05 23:33] VITALS: BP 132/78
[2017-05-06] MEDS: HYPROMELLOSE 0.5% 15 ML OPHTHALMIC SOLUTION OU SCH ×4 (00:34→17:40)
[2017-05-06] MEDS: VANCOMYCIN HCL 250 MG/5 ML SOLUTION ORAL.SYG PO SCH ×4 (00:34→17:41)
[2017-05-06] MEDS: INSULIN REGULAR, HUMAN 100 UNITS/ML SQ PRN ×4 (00:35→18:33)
[2017-05-06] MEDS: HEPARIN SODIUM,PORCINE 5,000 UNITS/ML VIAL SQ SCH ×3 (00:43→16:42)
[2017-05-06 04:18] VITALS: BP 141/79
[2017-05-06] MEDS: MetroNIDAZOLE 500 MG/NACL 100 ML IV SCH ×3 (05:32→23:10)
[2017-05-06] MEDS: AMINO ACIDS/PROTEIN HYDROLYS 30 ML TUBE PO SCH ×2 (08:00→13:05)
[2017-05-06] MEDS: OXYGEN THERAPY IH SCH ×2 (08:00→20:24)
[2017-05-06 08:51] VITALS: BP 134/81
[2017-05-06 10:04] LABS: GLUCOSE COMMENT 1 Received Meds; GLUCOSE,POINT OF CARE 303 MG/DL (70-110)
[2017-05-06] MEDS: DIVALPROEX SODIUM 125 MG DR TABLET PO SCH ×3 (10:24→20:24)
[2017-05-06] MEDS: DOCUSATE SODIUM 100 MG CAPSULE PO SCH ×2 (10:24→20:25)
[2017-05-06] MEDS: PANTOPRAZOLE SODIUM 40 MG/VIAL IVP SCH (10:24)
[2017-05-06] MEDS: CloNIDine HCL 0.1 MG TABLET PO SCH ×2 (10:24→20:25)
[2017-05-06] MEDS: MULTIVITAMINS WITH MINERALS, THERAPEUTIC 15 ML UDCUP NG SCH (10:24)
[2017-05-06] MEDS: ASPIRIN 81 MG EC TABLET PO SCH (10:25)
[2017-05-06] MEDS: TAMSULOSIN HCL 0.4 MG CAPSULE PO SCH (10:25)
[2017-05-06] MEDS: ClonazePAM 0.5 MG TABLET PO SCH (10:25)
[2017-05-06 10:34] LABS: GLUCOSE COMMENT 1 Received Meds; GLUCOSE,POINT OF CARE 329 MG/DL (70-110)
[2017-05-06 10:37] LABS: GLUCOSE COMMENT 1 Received Meds; GLUCOSE,POINT OF CARE 284 MG/DL (70-110)
[2017-05-06 10:37] LABS: GLUCOSE COMMENT 1 Received Meds; GLUCOSE,POINT OF CARE 258 MG/DL (70-110)
[2017-05-06 12:41] VITALS: BP 110/72
[2017-05-06] MEDS: AmLODIPine BESYLATE 2.5 MG TABLET PO SCH (13:05)
[2017-05-06 16:15] VITALS: BP 103/65
[2017-05-06 19:56] VITALS: BP 99/65
[2017-05-06] MEDS: ACETAMINOPHEN 325 MG TABLET PO PRN (20:25)
[2017-05-07 00:12] VITALS: BP 122/76
[2017-05-07 00:38] LABS: GLUCOSE COMMENT 1 Received Meds; GLUCOSE,POINT OF CARE 296 MG/DL (70-110)
[2017-05-07] MEDS: HEPARIN SODIUM,PORCINE 5,000 UNITS/ML VIAL SQ SCH (00:52)
[2017-05-07] MEDS: HYPROMELLOSE 0.5% 15 ML OPHTHALMIC SOLUTION OU SCH ×4 (00:52→18:18)
[2017-05-07] MEDS: VANCOMYCIN HCL 250 MG/5 ML SOLUTION ORAL.SYG PO SCH ×4 (00:52→18:18)
[2017-05-07] MEDS: INSULIN REGULAR, HUMAN 100 UNITS/ML SQ PRN ×4 (01:01→18:19)
[2017-05-07 01:02] LABS: GLUCOSE COMMENT 1 Received Meds; GLUCOSE,POINT OF CARE 296 MG/DL (70-110)
[2017-05-07 04:45] VITALS: BP 119/78
[2017-05-07] MEDS ORDERED: SODIUM CHLORIDE 0.9% IRRIG BTL 1,000 ML IRRIG ONE (04:57)
[2017-05-07] MEDS: MetroNIDAZOLE 500 MG/NACL 100 ML IV SCH ×3 (06:28→21:44)
[2017-05-07 07:57] VITALS: BP 125/77
[2017-05-07 08:05] LABS: BASOPHILS # (AUTO) 0.04 K/uL (0.00-0.20); BASOPHILS % (AUTO) 0.2 % (0.0-2.0); EOSINOPHILS # (AUTO) 0.17 K/uL (0.00-0.70); EOSINOPHILS % (AUTO) 0.76 % (1.0-6.0); HEMATOCRIT 38.7 % (41-53); HEMOGLOBIN 12.7 g/dL (13.5-17.5); LYMPHOCYTES # (AUTO) 1.4 K/uL (1.0-4.8); LYMPHOCYTES % (AUTO) 6.2 % (22.0-44.0); MEAN CORPUSCULAR HGB CONC 32.9 G/dL (31.0-37.0); MEAN CORPUSCULAR VOLUME 91 fL (80-100); MONOCYTES # (AUTO) 0.2 K/uL (0.1-1.0); MONOCYTES % (AUTO) 0.9 % (2.0-9.0); NEUTROPHILS # (AUTO) 20.1 K/uL (1.8-7.7); PLATELET COUNT (AUTO) 371 K/uL (150-450); RED BLOOD CELL COUNT(AUTO) 4.24 MIL/uL (4.50-5.90); RED CELL DISTRIBUTION WIDTH 15.7 % (11.5-14.5); WHITE BLOOD COUNT (AUTO) 21.9 K/uL (4.5-11.0)
[2017-05-07 08:09] LABS: RBC MORPHOLOGY COMMENT NORMAL RBC MORPH
[2017-05-07 08:10] LABS: ANION GAP 6 mmol/L (8-16); CALCIUM, TOTAL 8.6 mg/dL (8.8-10.5); CARBON DIOXIDE 28 mmol/L (22-29); CHLORIDE 101 mmol/L (98-107); CREATININE 0.54 mg/dL (0.60-1.30); GLOMERULAR FILTR. RATE CALC > 60 mL/min (>60); SODIUM SERUM 135 mmol/L (136-145); UREA NITROGEN, BLOOD 9 mg/dL (7-18)
[2017-05-07 08:16] LABS: ALANINE AMINOTRANSFERASE 8 U/L (12-78); ALBUMIN 1.6 g/dL (3.4-5.0); ASPARTATE AMINOTRANSFERASE 23 U/L (15-37); BILIRUBIN,TOTAL 0.2 mg/dL (0.1-1.0)
[2017-05-07] MEDS: OXYGEN THERAPY IH SCH ×2 (09:05→20:04)
[2017-05-07] MEDS: AMINO ACIDS/PROTEIN HYDROLYS 30 ML TUBE PO SCH ×2 (09:05→12:24)
[2017-05-07] MEDS: MULTIVITAMINS WITH MINERALS, THERAPEUTIC 15 ML UDCUP NG SCH (09:23)
[2017-05-07 09:24] LABS: GLUCOSE COMMENT 1 Received Meds; GLUCOSE,POINT OF CARE 267 MG/DL (70-110)
[2017-05-07] MEDS: ASPIRIN 81 MG EC TABLET PO SCH (09:24)
[2017-05-07] MEDS: TAMSULOSIN HCL 0.4 MG CAPSULE PO SCH (09:24)
[2017-05-07] MEDS: CloNIDine HCL 0.1 MG TABLET PO SCH ×2 (09:24→21:39)
[2017-05-07] MEDS: AmLODIPine BESYLATE 2.5 MG TABLET PO SCH (09:24)
[2017-05-07] MEDS: DOCUSATE SODIUM 100 MG CAPSULE PO SCH ×2 (09:24→09:53)
[2017-05-07] MEDS: ClonazePAM 0.5 MG TABLET PO SCH (09:24)
[2017-05-07] MEDS: DIVALPROEX SODIUM 125 MG DR TABLET PO SCH ×2 (09:24→17:02)
[2017-05-07] MEDS: PANTOPRAZOLE SODIUM 40 MG/VIAL IVP SCH (09:25)
[2017-05-07] MEDS ORDERED: MORPHINE SULFATE 2 MG/ML SYRINGE IM ONE (09:30)
[2017-05-07 11:31] VITALS: BP 130/80
[2017-05-07 18:11] LABS: INR 1.1 (0.9-1.1)
[2017-05-07 19:43] VITALS: BP 115/71
[2017-05-07] MEDS: VALPROIC ACID 250 MG/5 ML SYRUP UDCUP PO SCH (21:39)
[2017-05-07] MEDS: INSULIN DETEMIR 100 UNITS/ML SQ SCH (21:39)
[2017-05-07 23:42] VITALS: BP 111/70
[2017-05-08] MEDS: VANCOMYCIN HCL 250 MG/5 ML SOLUTION ORAL.SYG PO SCH ×4 (00:19→18:04)
[2017-05-08] MEDS: HYPROMELLOSE 0.5% 15 ML OPHTHALMIC SOLUTION OU SCH ×4 (00:20→18:04)
[2017-05-08 04:16] VITALS: BP 132/77
[2017-05-08 06:10] LABS: BASOPHILS % (AUTO) 0.4 % (0.0-2.0); EOSINOPHILS % (AUTO) 0.8 % (1.0-6.0); LYMPHOCYTES # (AUTO) 1.5 K/uL (1.0-4.8); LYMPHOCYTES % (AUTO) 8.3 % (22.0-44.0); MEAN CORPUSCULAR HEMOGLOBIN 30.3 pg (26.0-34.0); MEAN CORPUSCULAR HGB CONC 33.2 G/dL (31.0-37.0); MEAN CORPUSCULAR VOLUME 91 fL (80-100); MONOCYTES # (AUTO) 0.6 K/uL (0.1-1.0); MONOCYTES % (AUTO) 3.1 % (2.0-9.0); PLATELET COUNT (AUTO) 492 K/uL (150-450); RED BLOOD CELL COUNT(AUTO) 3.96 MIL/uL (4.50-5.90); RED CELL DISTRIBUTION WIDTH 15.8 % (11.5-14.5); WHITE BLOOD COUNT (AUTO) 18.3 K/uL (4.5-11.0)
[2017-05-08] MEDS: MetroNIDAZOLE 500 MG/NACL 100 ML IV SCH ×3 (06:38→23:55)
[2017-05-08] MEDS ORDERED: SODIUM CHLORIDE 0.9% 250 ML IV ONE (06:42)
[2017-05-08 06:43] LABS: NEUTROPHILS % (AUTO) 87.4 % (40.0-70.0)
[2017-05-08 07:40] LABS: RBC MORPHOLOGY COMMENT NORMAL RBC MORPH
[2017-05-08] MEDS: OXYGEN THERAPY IH SCH ×2 (08:00→21:06)
[2017-05-08] MEDS: AMINO ACIDS/PROTEIN HYDROLYS 30 ML TUBE PO SCH ×2 (08:00→12:00)
[2017-05-08 08:59] LABS: GLUCOSE COMMENT 1 Received Meds; GLUCOSE,POINT OF CARE 279 MG/DL (70-110)
[2017-05-08 08:59] LABS: GLUCOSE COMMENT 1 Received Meds; GLUCOSE,POINT OF CARE 271 MG/DL (70-110)
[2017-05-08] MEDS: CloNIDine HCL 0.1 MG TABLET PO SCH ×2 (09:00→21:00)
[2017-05-08] MEDS: DOCUSATE SODIUM 100 MG CAPSULE PO SCH ×2 (09:00→21:06)
[2017-05-08] MEDS: TAMSULOSIN HCL 0.4 MG CAPSULE PO SCH (09:00)
[2017-05-08] MEDS: AmLODIPine BESYLATE 2.5 MG TABLET PO SCH (09:00)
[2017-05-08] MEDS: ASPIRIN 81 MG CHEWABLE TABLET PO SCH (09:00)
[2017-05-08] MEDS: VALPROIC ACID 250 MG/5 ML SYRUP UDCUP PO SCH ×3 (09:00→21:06)
[2017-05-08] MEDS: ClonazePAM 0.5 MG TABLET PO SCH (09:00)
[2017-05-08] MEDS: MULTIVITAMINS WITH MINERALS, THERAPEUTIC 15 ML UDCUP NG SCH (09:00)
[2017-05-08 09:11] LABS: GLUCOSE COMMENT 1 Received Meds; GLUCOSE,POINT OF CARE 288 MG/DL (70-110)
[2017-05-08 09:11] LABS: GLUCOSE,POINT OF CARE 304 MG/DL (70-110)
[2017-05-08 09:20] LABS: GLUCOSE COMMENT 1 FASTING; GLUCOSE,POINT OF CARE 236 MG/DL (70-110)
[2017-05-08] MEDS: PANTOPRAZOLE SODIUM 40 MG/VIAL IVP SCH (09:50)
[2017-05-08] MEDS ORDERED: SODIUM CHLORIDE 0.9% IRRIG BTL 1,000 ML IRRIG ONE (09:51)
[2017-05-08] MEDS ORDERED: SODIUM CHLORIDE 0.9% 1,000 ML IV ONE ×2 (10:58→11:00)
[2017-05-08 11:33] LABS: GLUCOSE COMMENT 1 Received Meds; GLUCOSE,POINT OF CARE 282 MG/DL (70-110)
[2017-05-08] MEDS ORDERED: PROPOFOL 1% 20 ML VIAL IVP ONE (12:00)
[2017-05-08] MEDS ORDERED: CeFAZolin 1 GM/DEXTROSE 50 ML IV ONE (12:00)
[2017-05-08] MEDS ORDERED: LIDOCAINE HCL/PF 2% 5 ML VIAL INJ ONE (12:00)
[2017-05-08 16:23] VITALS: BP 140/56
[2017-05-08] MEDS: INSULIN REGULAR, HUMAN 100 UNITS/ML SQ PRN (18:10)
[2017-05-08 19:55] VITALS: BP 112/60
[2017-05-08] MEDS: INSULIN DETEMIR 100 UNITS/ML SQ SCH (23:56)
[2017-05-09 00:13] VITALS: BP 119/71
[2017-05-09] MEDS: HYPROMELLOSE 0.5% 15 ML OPHTHALMIC SOLUTION OU SCH ×2 (00:39→06:24)
[2017-05-09] MEDS: VANCOMYCIN HCL 250 MG/5 ML SOLUTION ORAL.SYG PO SCH ×3 (00:39→12:58)
[2017-05-09] MEDS: INSULIN REGULAR, HUMAN 100 UNITS/ML SQ PRN ×2 (00:50→06:25)
[2017-05-09 04:37] VITALS: BP 132/82
[2017-05-09] MEDS: MetroNIDAZOLE 500 MG/NACL 100 ML IV SCH ×2 (06:24→15:24)
[2017-05-09 07:39] VITALS: BP 126/77
[2017-05-09] MEDS: AMINO ACIDS/PROTEIN HYDROLYS 30 ML TUBE PO SCH ×2 (08:00→12:57)
[2017-05-09] MEDS ORDERED: POVIDONE-IODINE 10% 120 ML SOLUTION TP SCH (09:00)
[2017-05-09] MEDS ORDERED: HYDROGEN PEROXIDE 473 ML SOLUTION TP SCH (09:00)
[2017-05-09] MEDS: ASPIRIN 81 MG CHEWABLE TABLET PO SCH (09:19)
[2017-05-09] MEDS: DOCUSATE SODIUM 100 MG CAPSULE PO SCH (09:20)
[2017-05-09] MEDS: CloNIDine HCL 0.1 MG TABLET PO SCH (09:20)
[2017-05-09] MEDS: ClonazePAM 0.5 MG TABLET PO SCH (09:20)
[2017-05-09] MEDS: AmLODIPine BESYLATE 2.5 MG TABLET PO SCH (09:20)
[2017-05-09] MEDS: VALPROIC ACID 250 MG/5 ML SYRUP UDCUP PO SCH (09:21)
[2017-05-09] MEDS: MULTIVITAMINS WITH MINERALS, THERAPEUTIC 15 ML UDCUP NG SCH (09:21)
[2017-05-09] MEDS: TAMSULOSIN HCL 0.4 MG CAPSULE PO SCH (09:24)
[2017-05-09] MEDS: PANTOPRAZOLE SODIUM 40 MG/VIAL IVP SCH (09:24)
[2017-05-09 10:55] VITALS: BP_SYST 117; BP_SYST 140; BP_DIAS 73; BP_DIAS 80
[2017-05-09 15:56] VITALS: BP 132/82
[2017-05-09] MEDS ORDERED: CANAGLIFLOZIN 100 MG TABLET PO SCH (16:30)
[2017-05-09] MEDS ORDERED: LIRAGLUTIDE 1.8 MG SQ SCH (16:30)
[2017-05-09 19:38] LABS: GLUCOSE COMMENT 1 Received Meds; GLUCOSE,POINT OF CARE 181 MG/DL (70-110)
[2017-05-09 19:38] LABS: GLUCOSE,POINT OF CARE 181 MG/DL (70-110)
[2017-05-09 19:38] LABS: GLUCOSE COMMENT 1 Received Meds; GLUCOSE,POINT OF CARE 203 MG/DL (70-110)
[2017-05-09 19:38] LABS: GLUCOSE COMMENT 1 Received Meds; GLUCOSE,POINT OF CARE 189 MG/DL (70-110)
[2017-05-09 19:58] LABS: GLUCOSE,POINT OF CARE 312 MG/DL (70-110)
[2017-05-09 19:58] LABS: GLUCOSE,POINT OF CARE 289 MG/DL (70-110)
== END 2017-05-09 16:15 | DRG 871 ==
LOC: EMS 12:01 → ICU 14:33 → 5S 05-04 18:20 → UNDODISIN 05-09 16:15
PROVIDERS: ADMIT Hospitalist; ATTEND Hospitalist
PROC: 0DH63UZ Insertion of Feeding Device into Stomach, Percutaneous Approach (ICD-10-PCS; principal; 2017-05-08 12:00)
PROC: 3E0234Z Introduction of Serum, Toxoid and Vaccine into Muscle, Percutaneous Approach (ICD-10-PCS; 2017-05-09)
DX: A41.9 Sepsis, unspecified organism (principal); I63.9 Cerebral infarction, unspecified; E43 Unspecified severe protein-calorie malnutrition; J96.01 Acute respiratory failure with hypoxia; I50.21 Acute systolic (congestive) heart failure; E87.0 Hyperosmolality and hypernatremia; L89.153 Pressure ulcer of sacral region, stage 3; A04.72 Enterocolitis due to Clostridium difficile, not specified as recurrent; I11.0 Hypertensive heart disease with heart failure; N40.0 Benign prostatic hyperplasia without lower urinary tract symptoms; E11.65 Type 2 diabetes mellitus with hyperglycemia; F17.210 Nicotine dependence, cigarettes, uncomplicated; F31.9 Bipolar disorder, unspecified; R13.10 Dysphagia, unspecified; I25.10 Atherosclerotic heart disease of native coronary artery without angina pectoris; H54.7 Unspecified visual loss; F25.9 Schizoaffective disorder, unspecified; Z22.322 Carrier or suspected carrier of Methicillin resistant Staphylococcus aureus; Z79.899 Other long term (current) drug therapy; Z87.440 Personal history of urinary (tract) infections; Z86.73 Personal history of transient ischemic attack (TIA), and cerebral infarction without residual deficits; Z83.3 Family history of diabetes mellitus; Z82.49 Family history of ischemic heart disease and other diseases of the circulatory system; Z68.22 Body mass index [BMI] 22.0-22.9, adult; Z23 Encounter for immunization
CPT/HCPCS: 51702; 70450; 71250; 74177; 82805; 82962; 83605; 84132; 84439; 84443; 85007; 87040; 87070; 87081; 87086; 87205; 87324; 87449; 90471; 92526; 92610; 93005; 93306; 93880; 94640; 94799; 96365; 96366; 96368; 96375; 97162; 97167; 99291; C9113; J0131; J0690; J0744; J1644; J1815; J2543; J2704; J2997; J3370; J3480; J3490; J7030; J7050; J7060

== ENCOUNTER 2017-05-12 23:22 | Inpatient (IN) | payer MEDICARE, MEDICAID ==
[~2017-05-12] VITALS: Ht 188 cm; Wt 64.5 kg
[2017-05-12] MEDS ORDERED: VALP250S4 PO (23:31)
[2017-05-12] MEDS ORDERED: VANCOPO PO (23:31)
[2017-05-12] MEDS ORDERED: INSREG SQ (23:31)
[2017-05-12] MEDS ORDERED: AMIN30LI28 PO ×2 (23:31)
[2017-05-12] MEDS ORDERED: COLL30OI TP (23:31)
[2017-05-12] MEDS ORDERED: PROPOFOL 1000 MG/ISO-OSM 100 ML IV ONE (23:39)
[2017-05-12] MEDS ORDERED: MIDAZOLAM HCL 5 MG/ML VIAL ONE (23:39)
[2017-05-12] MEDS ORDERED: ONDANSETRON HCL 4 MG/2 ML VIAL IVP PRN (23:45)
[2017-05-12] MEDS ORDERED: 0.9% SODIUM CHLORIDE 10 ML SYRINGE IVP PRN ×2 (23:45)
[2017-05-12] MEDS ORDERED: ACETAMINOPHEN 1000 MG/ISO-OSM 100 ML IV ONE (23:45)
[2017-05-12] MEDS ORDERED: SODIUM CHLORIDE 0.9% 2,000 ML IV ONE (23:45)
[2017-05-12] MEDS ORDERED: PIPERACILLIN/TAZO 3.375 GM/D5W 50 ML IV ONE ×2 (23:45)
[2017-05-12 23:55] LABS: BASOPHILS % (AUTO) 0.1 % (0.0-2.0); EOSINOPHILS % (AUTO) 0.6 % (1.0-6.0); HEMATOCRIT 39.3 % (41-53); HEMOGLOBIN 12.8 g/dL (13.5-17.5); LYMPHOCYTES # (AUTO) 1.4 K/uL (1.0-4.8); LYMPHOCYTES % (AUTO) 5.9 % (22.0-44.0); MEAN CORPUSCULAR HEMOGLOBIN 29.7 pg (26.0-34.0); MEAN CORPUSCULAR HGB CONC 32.5 G/dL (31.0-37.0); MEAN CORPUSCULAR VOLUME 91 fL (80-100); MONOCYTES # (AUTO) 0.5 K/uL (0.1-1.0); NEUTROPHILS # (AUTO) 22.1 K/uL (1.8-7.7); PLATELET COUNT (AUTO) 647 K/uL (150-450); RED CELL DISTRIBUTION WIDTH 16.1 % (11.5-14.5); WHITE BLOOD COUNT (AUTO) 24.1 K/uL (4.5-11.0)
[2017-05-12] MEDS ORDERED: PROPOFOL 1000 MG/ISO-OSM 100 ML IV PRN (23:57)
[2017-05-12 23:58] LABS: NEUTROPHILS % (AUTO) 91.4 % (40.0-70.0)
[2017-05-13] MEDS ORDERED: MIDAZOLAM HCL 5 MG/ML VIAL IVP ONE
[2017-05-13 00:11] LABS: ANION GAP 7 mmol/L (8-16); CALCIUM, TOTAL 9.3 mg/dL (8.8-10.5); CARBON DIOXIDE 30 mmol/L (22-29); CHLORIDE 104 mmol/L (98-107); CREATININE 0.69 mg/dL (0.60-1.30); GLOMERULAR FILTR. RATE CALC > 60 mL/min (>60); SODIUM SERUM 141 mmol/L (136-145); UREA NITROGEN, BLOOD 21 mg/dL (7-18)
[2017-05-13 00:11] LABS: OCCULT BLOOD STOOL SINGLE ONLY NEGATIVE (NEGATIVE)
[2017-05-13 00:14] LABS: INR 1.1 (0.9-1.1); PROTHROMBIN TIME 11.3 SEC (9.4-11.6)
[2017-05-13 00:14] LABS: LACTIC ACID 0.9 mmol/L (0.4-2.0)
[2017-05-13 00:21] LABS: ALANINE AMINOTRANSFERASE 14 U/L (12-78); ALBUMIN 1.9 g/dL (3.4-5.0); ASPARTATE AMINOTRANSFERASE 26 U/L (15-37); BILIRUBIN,TOTAL 0.4 mg/dL (0.1-1.0); CREATINE KINASE, TOTAL 19 U/L (39-308)
[2017-05-13 00:24] LABS: APPEARANCE,URINE CLOUDY (CLEAR); GLUCOSE, URINE (UA) >=1000 mg/dL (NEGATIVE); KETONES,URINE 15 mg/dL (NEGATIVE); LEUKOCYTE ESTERASE ,URINE NEGATIVE (NEGATIVE); OCCULT BLOOD,URINE NEGATIVE (NEGATIVE); PROTEIN,URINE SEE CONFIRM (NEGATIVE)
[2017-05-13 00:30] LABS: B-TYPE NATRIURETIC PEPTIDE 115 pg/mL (0-100)
[2017-05-13 00:31] LABS: ADD UA MICROSCOPIC YES
[2017-05-13 00:39] LABS: ABG A-A DIFF O2 301.7 mmHg (10-20.0); ABG BASE EXCESS 5.9 mmol/L (-2.0-3.0); ABG HCO3 28.9 mmol/L (22.0-26.0); ABG OXYHEMOGLOBIN 97.9 % (94.0-100.0); ABG PCO2 54 mmHg (35-45); ABG PH 7.382 (7.35-7.450); ALLEN TEST, BLOOD GAS POSITIVE; TEMPERATURE, FAHRENHEIT, BG 100.2 FAHREN (96.0-98.6)
[2017-05-13 00:54] LABS: RBC,URINE 0-2 /HPF (0-2); SULFOSALICYLIC ACID,URINE 1+ (Negative)
[2017-05-13 00:55] LABS: SQUAMOUS EPITHELIAL CELL,UR Rare /LPF (None Seen)
[2017-05-13] MEDS ORDERED: MAGNESIUM HYDROXIDE SUSPENSION 30 ML UDCUP PO PRN (01:45)
[2017-05-13] MEDS ORDERED: BISACODYL 10 MG RECTAL RECTAL SUPPOSITORY PR PRN (01:45)
[2017-05-13] MEDS ORDERED: HYDROCODONE/ACETAMINOPHEN 5-325 MG TABLET GT PRN (01:45)
[2017-05-13] MEDS ORDERED: DEXTROSE 50%-WATER 25 GM/50 ML SYRINGE IVP PRN (01:45)
[2017-05-13] MEDS ORDERED: ONDANSETRON HCL 4 MG/2 ML VIAL IVP PRN (01:45)
[2017-05-13] MEDS ORDERED: MORPHINE SULFATE 2 MG/ML SYRINGE IVP PRN (01:45)
[2017-05-13] MEDS ORDERED: MAGNESIUM HYDROXIDE SUSPENSION 30 ML UDCUP GT PRN (02:22)
[2017-05-13] MEDS: SODIUM CHLORIDE 0.9% 1,000 ML IV SCH ×4 (02:30→22:41)
[2017-05-13] MEDS: PROPOFOL 1000 MG/ISO-OSM 100 ML IV PRN ×4 (05:36→19:42)
[2017-05-13] MEDS: PIPERACILLIN/TAZO 3.375 GM/D5W 50 ML IV SCH ×4 (05:37→23:45)
[2017-05-13 08:42] LABS: GLUCOSE,POINT OF CARE 163 MG/DL (70-110)
[2017-05-13] MEDS: IPRATROPIUM BROMIDE 0.5 MG/2.5 ML NEB SOLUTION NEB SCH ×3 (09:34→23:45)
[2017-05-13] MEDS: ALBUTEROL SULFATE 2.5 MG/0.5 ML NEB SOLUTION NEB SCH ×3 (09:34→23:45)
[2017-05-13] MEDS: LANSOPRAZOLE 30 MG SOLUBLE TABLET GT SCH (10:02)
[2017-05-13] MEDS: ACETAMINOPHEN 650 MG/20.3 ML SOLUTION UDCUP GT PRN (10:02)
[2017-05-13] MEDS ORDERED: PROPOFOL 1000 MG/ISO-OSM 100 ML IV ONE ×2 (10:23→14:50)
[2017-05-13 12:04] LABS: GLUCOSE,POINT OF CARE 201 MG/DL (70-110)
[2017-05-13 12:15] VITALS: BP 153/85
[2017-05-13] MEDS ORDERED: VANCOMYCIN HCL 1.5 GM in DEXTROSE 5%-WATER 250 ML IV ONE ×2 (13:00→23:00)
[2017-05-13] MEDS: ASPIRIN 81 MG CHEWABLE TABLET PO SCH (14:44)
[2017-05-13] MEDS: VANCOMYCIN HCL 125 MG/2.5 ML SOLUTION ORAL.SYG PO SCH ×3 (14:44→23:45)
[2017-05-13] MEDS: VANCOMYCIN HCL 1.5 GM in DEXTROSE 5%-WATER 250 ML IV SCH (14:45)
[2017-05-13 15:44] VITALS: BP 153/75
[2017-05-13 16:00] VITALS: BP 169/80
[2017-05-13] MEDS: INSULIN ASPART 100 UNITS/ML SQ PRN ×2 (17:18→21:23)
[2017-05-13 17:25] VITALS: BP 169/80
[2017-05-13 18:22] LABS: GLUCOSE,POINT OF CARE 220 MG/DL (70-110)
[2017-05-13 20:00] VITALS: BP 158/68
[2017-05-13 21:32] LABS: GLUCOSE,POINT OF CARE 124 MG/DL (70-110)
[2017-05-14] VITALS (9 sets, daily range): BP systolic 106–143; BP diastolic 58–75
[2017-05-14] MEDS: PROPOFOL 1000 MG/ISO-OSM 100 ML IV PRN ×3 (04:03→17:10)
[2017-05-14] MEDS: VANCOMYCIN HCL 125 MG/2.5 ML SOLUTION ORAL.SYG PO SCH ×4 (05:16→23:50)
[2017-05-14] MEDS: PIPERACILLIN/TAZO 3.375 GM/D5W 50 ML IV SCH ×4 (05:16→23:50)
[2017-05-14] MEDS: INSULIN ASPART 100 UNITS/ML SQ PRN ×3 (05:23→22:03)
[2017-05-14 05:25] LABS: BASOPHILS % (AUTO) 0.3 % (0.0-2.0); EOSINOPHILS % (AUTO) 1.6 % (1.0-6.0); HEMATOCRIT 32.7 % (41-53); HEMOGLOBIN 10.8 g/dL (13.5-17.5); LYMPHOCYTES # (AUTO) 1.7 K/uL (1.0-4.8); LYMPHOCYTES % (AUTO) 10.2 % (22.0-44.0); MEAN CORPUSCULAR HEMOGLOBIN 29.9 pg (26.0-34.0); MEAN CORPUSCULAR HGB CONC 33.2 G/dL (31.0-37.0); MEAN CORPUSCULAR VOLUME 90 fL (80-100); MONOCYTES # (AUTO) 0.8 K/uL (0.1-1.0); MONOCYTES % (AUTO) 4.9 % (2.0-9.0); NEUTROPHILS # (AUTO) 13.7 K/uL (1.8-7.7); PLATELET COUNT (AUTO) 523 K/uL (150-450); RED BLOOD CELL COUNT(AUTO) 3.63 MIL/uL (4.50-5.90); RED CELL DISTRIBUTION WIDTH 15.8 % (11.5-14.5); WHITE BLOOD COUNT (AUTO) 16.5 K/uL (4.5-11.0)
[2017-05-14 05:43] LABS: ALBUMIN 1.4 g/dL (3.4-5.0); ANION GAP 7 mmol/L (8-16); ASPARTATE AMINOTRANSFERASE 21 U/L (15-37); BILIRUBIN,TOTAL 0.4 mg/dL (0.1-1.0); CALCIUM, TOTAL 8.5 mg/dL (8.8-10.5); CARBON DIOXIDE 24 mmol/L (22-29); CHLORIDE 108 mmol/L (98-107); CREATININE 0.44 mg/dL (0.60-1.30); GLOMERULAR FILTR. RATE CALC > 60 mL/min (>60); PHOSPHORUS 2.8 mg/dL (2.5-4.9); POTASSIUM 3.4 mmol/L (3.5-5.1); SODIUM SERUM 139 mmol/L (136-145); UREA NITROGEN, BLOOD 10 mg/dL (7-18)
[2017-05-14 05:54] LABS: B-TYPE NATRIURETIC PEPTIDE 188 pg/mL (0-100)
[2017-05-14 06:03] LABS: ALANINE AMINOTRANSFERASE < 12 U/L (12-78)
[2017-05-14 08:04] LABS: ABG A-A DIFF O2 118.5 mmHg (10-20.0); ABG BASE EXCESS 0.2 mmol/L (-2.0-3.0); ABG HCO3 25.2 mmol/L (22.0-26.0); ABG PCO2 33 mmHg (35-45); ABG PH 7.481 (7.35-7.450); TEMPERATURE, FAHRENHEIT, BG 98.6 FAHREN (96.0-98.6)
[2017-05-14 08:05] LABS: ALLEN TEST, BLOOD GAS Positive
[2017-05-14] MEDS: IPRATROPIUM BROMIDE 0.5 MG/2.5 ML NEB SOLUTION NEB SCH ×3 (08:41→22:08)
[2017-05-14] MEDS: ALBUTEROL SULFATE 2.5 MG/0.5 ML NEB SOLUTION NEB SCH ×3 (08:41→22:08)
[2017-05-14] MEDS: LANSOPRAZOLE 30 MG SOLUBLE TABLET GT SCH (09:26)
[2017-05-14] MEDS: ASPIRIN 81 MG CHEWABLE TABLET PO SCH (09:27)
[2017-05-14] MEDS: SODIUM CHLORIDE 0.9% 1,000 ML IV SCH ×2 (09:46→17:35)
[2017-05-14] MEDS: MULTIVITAMINS WITH MINERALS, THERAPEUTIC 15 ML UDCUP PEG SCH (12:43)
[2017-05-14] MEDS: POTASSIUM CHLORIDE 20 MEQ ER TABLET PO PRN (13:14)
[2017-05-14] MEDS ORDERED: AMINO ACIDS/PROTEIN HYDROLYS 30 ML TUBE PO SCH ×2 (18:06)
[2017-05-14 19:14] LABS: GLUCOSE,POINT OF CARE 126 MG/DL (70-110)
[2017-05-14] MEDS: VANCOMYCIN HCL 1.5 GM in DEXTROSE 5%-WATER 250 ML IV SCH (20:13)
[2017-05-14] MEDS ORDERED: SODIUM CHLORIDE 0.9% 250 ML IV ONE ×2 (20:29→23:42)
[2017-05-14 20:39] LABS: GLUCOSE,POINT OF CARE 131 MG/DL (70-110)
[2017-05-14 20:40] LABS: GLUCOSE,POINT OF CARE 152 MG/DL (70-110)
[2017-05-15] VITALS: BP 122/73
[2017-05-15] MEDS: PROPOFOL 1000 MG/ISO-OSM 100 ML IV PRN ×4 (00:04→18:26)
[2017-05-15 04:00] VITALS: BP 115/66
[2017-05-15] MEDS: VANCOMYCIN HCL 125 MG/2.5 ML SOLUTION ORAL.SYG PO SCH ×3 (05:42→17:32)
[2017-05-15] MEDS: PIPERACILLIN/TAZO 3.375 GM/D5W 50 ML IV SCH ×3 (05:42→17:16)
[2017-05-15 05:54] LABS: GLUCOSE COMMENT 1 Received Meds; GLUCOSE,POINT OF CARE 164 MG/DL (70-110)
[2017-05-15 08:00] VITALS: BP 108/65
[2017-05-15] MEDS: LANSOPRAZOLE 30 MG SOLUBLE TABLET GT SCH (08:02)
[2017-05-15] MEDS: AMINO ACIDS/PROTEIN HYDROLYS 30 ML TUBE PO SCH ×2 (08:02→11:24)
[2017-05-15] MEDS: ASPIRIN 81 MG CHEWABLE TABLET PO SCH (08:02)
[2017-05-15] MEDS: VANCOMYCIN HCL 1.5 GM in DEXTROSE 5%-WATER 250 ML IV SCH ×2 (08:02→20:46)
[2017-05-15] MEDS: MULTIVITAMINS WITH MINERALS, THERAPEUTIC 15 ML UDCUP PEG SCH (08:02)
[2017-05-15] MEDS: ALBUTEROL SULFATE 2.5 MG/0.5 ML NEB SOLUTION NEB SCH ×3 (08:58→21:13)
[2017-05-15] MEDS: IPRATROPIUM BROMIDE 0.5 MG/2.5 ML NEB SOLUTION NEB SCH ×3 (08:58→21:13)
[2017-05-15 10:17] LABS: ALLEN TEST, BLOOD GAS Positive
[2017-05-15 10:18] LABS: ABG BASE EXCESS -1.6 mmol/L (-2.0-3.0); ABG OXYHEMOGLOBIN 96.8 % (94.0-100.0); ABG PCO2 27 mmHg (35-45); ABG PH 7.519 (7.35-7.450)
[2017-05-15 10:19] LABS: ABG A-A DIFF O2 109.1 mmHg (10-20.0)
[2017-05-15 11:07] LABS: ANION GAP 10 mmol/L (8-16); CALCIUM, TOTAL 8.4 mg/dL (8.8-10.5); CARBON DIOXIDE 22 mmol/L (22-29); CHLORIDE 106 mmol/L (98-107); CREATININE 0.41 mg/dL (0.60-1.30); GLOMERULAR FILTR. RATE CALC > 60 mL/min (>60); POTASSIUM 4.3 mmol/L (3.5-5.1); SODIUM SERUM 138 mmol/L (136-145); UREA NITROGEN, BLOOD 8 mg/dL (7-18)
[2017-05-15 11:47] LABS: GLUCOSE,POINT OF CARE 128 MG/DL (70-110)
[2017-05-15] MEDS: INSULIN ASPART 100 UNITS/ML SQ PRN ×2 (11:54→16:42)
[2017-05-15 12:00] VITALS: BP 115/62
[2017-05-15 16:00] VITALS: BP 145/88
[2017-05-15 20:00] VITALS: BP 110/63
[2017-05-15] MEDS ORDERED: SODIUM CHLORIDE 0.9% 250 ML IV ONE (20:06)
[2017-05-16] VITALS: BP 112/62
[2017-05-16] MEDS: PIPERACILLIN/TAZO 3.375 GM/D5W 50 ML IV SCH ×4 (00:38→17:55)
[2017-05-16] MEDS: VANCOMYCIN HCL 125 MG/2.5 ML SOLUTION ORAL.SYG PO SCH ×4 (00:38→17:55)
[2017-05-16] MEDS: PROPOFOL 1000 MG/ISO-OSM 100 ML IV PRN ×2 (02:33→10:16)
[2017-05-16 04:00] VITALS: BP 128/69
[2017-05-16 05:31] LABS: ANION GAP 8 mmol/L (8-16); CALCIUM, TOTAL 8.6 mg/dL (8.8-10.5); CARBON DIOXIDE 24 mmol/L (22-29); CHLORIDE 105 mmol/L (98-107); CREATININE 0.43 mg/dL (0.60-1.30); GLOMERULAR FILTR. RATE CALC > 60 mL/min (>60); POTASSIUM 3.5 mmol/L (3.5-5.1); SODIUM SERUM 137 mmol/L (136-145); UREA NITROGEN, BLOOD 7 mg/dL (7-18)
[2017-05-16] MEDS: INSULIN ASPART 100 UNITS/ML SQ PRN ×3 (05:58→18:19)
[2017-05-16] MEDS: VANCOMYCIN HCL 1.5 GM in DEXTROSE 5%-WATER 250 ML IV SCH ×2 (07:40→20:26)
[2017-05-16] MEDS: MULTIVITAMINS WITH MINERALS, THERAPEUTIC 15 ML UDCUP PEG SCH (07:41)
[2017-05-16] MEDS: AMINO ACIDS/PROTEIN HYDROLYS 30 ML TUBE PO SCH ×2 (07:41→11:37)
[2017-05-16] MEDS: ALBUTEROL SULFATE 2.5 MG/0.5 ML NEB SOLUTION NEB SCH ×3 (07:41→20:41)
[2017-05-16] MEDS: LANSOPRAZOLE 30 MG SOLUBLE TABLET GT SCH (07:41)
[2017-05-16] MEDS: IPRATROPIUM BROMIDE 0.5 MG/2.5 ML NEB SOLUTION NEB SCH ×3 (07:41→20:41)
[2017-05-16] MEDS: ASPIRIN 81 MG CHEWABLE TABLET PO SCH (07:42)
[2017-05-16 08:00] VITALS: BP 144/83
[2017-05-16 10:45] LABS: ABG BASE EXCESS 1.3 mmol/L (-2.0-3.0); ABG OXYHEMOGLOBIN 97.6 % (94.0-100.0); ABG PCO2 33 mmHg (35-45); ABG PH 7.493 (7.35-7.450); ALLEN TEST, BLOOD GAS Positive; TEMPERATURE, FAHRENHEIT, BG 99.4 FAHREN (96.0-98.6)
[2017-05-16 11:09] LABS: GLUCOSE,POINT OF CARE 159 MG/DL (70-110)
[2017-05-16 11:09] LABS: GLUCOSE,POINT OF CARE 199 MG/DL (70-110)
[2017-05-16 11:14] LABS: GLUCOSE,POINT OF CARE 133 MG/DL (70-110)
[2017-05-16 11:20] LABS: GLUCOSE COMMENT 1 Received Meds; GLUCOSE,POINT OF CARE 178 MG/DL (70-110)
[2017-05-16] MEDS: ACETAMINOPHEN 650 MG/20.3 ML SOLUTION UDCUP GT PRN (11:36)
[2017-05-16 12:03] LABS: GLUCOSE COMMENT 1 Received Meds; GLUCOSE,POINT OF CARE 190 MG/DL (70-110)
[2017-05-16 12:10] VITALS: BP 144/85
[2017-05-16 14:59] LABS: ALLEN TEST, BLOOD GAS Positive
[2017-05-16 15:00] LABS: ABG HCO3 28.9 mmol/L (22.0-26.0); ABG OXYHEMOGLOBIN 97.8 % (94.0-100.0); ABG PCO2 37 mmHg (35-45); ABG PH 7.503 (7.35-7.450)
[2017-05-16 16:00] VITALS: BP 142/93
[2017-05-16 18:29] LABS: ABG A-A DIFF O2 99.9 mmHg (10-20.0)
[2017-05-16 18:29] LABS: ABG A-A DIFF O2 98.9 mmHg (10-20.0)
[2017-05-16] MEDS ORDERED: INSULIN REGULAR, HUMAN 100 UNITS/ML SQ PRN (18:45)
[2017-05-16] MEDS ORDERED: DEXTROSE 50%-WATER 25 GM/50 ML SYRINGE IVP PRN (18:45)
[2017-05-16 19:39] LABS: ABG PH 7.514 (7.35-7.450); ALLEN TEST, BLOOD GAS Positive; TEMPERATURE, FAHRENHEIT, BG 98.6 FAHREN (96.0-98.6)
[2017-05-16 19:40] LABS: ABG BASE EXCESS 3.8 mmol/L (-2.0-3.0); ABG OXYHEMOGLOBIN 94.7 % (94.0-100.0); ABG PCO2 34 mmHg (35-45)
[2017-05-16 19:41] LABS: ABG A-A DIFF O2 85.6 mmHg (10-20.0)
[2017-05-16 20:00] VITALS: BP 131/73
[2017-05-16] MEDS ORDERED: 0.9% SODIUM CHLORIDE 5 ML NEB SOLUTION NEB ONE (20:33)
[2017-05-16 20:38] LABS: GLUCOSE,POINT OF CARE 200 MG/DL (70-110)
[2017-05-17] VITALS (7 sets, daily range): BP systolic 121–150; BP diastolic 68–91
[2017-05-17] MEDS: PIPERACILLIN/TAZO 3.375 GM/D5W 50 ML IV SCH ×4 (00:01→18:33)
[2017-05-17] MEDS: VANCOMYCIN HCL 125 MG/2.5 ML SOLUTION ORAL.SYG PO SCH ×5 (00:01→23:57)
[2017-05-17] MEDS: INSULIN ASPART 100 UNITS/ML SQ PRN ×5 (00:33→23:57)
[2017-05-17 06:52] LABS: GLUCOSE COMMENT 1 Received Meds; GLUCOSE,POINT OF CARE 199 MG/DL (70-110)
[2017-05-17 06:52] LABS: GLUCOSE COMMENT 1 Received Meds; GLUCOSE,POINT OF CARE 220 MG/DL (70-110)
[2017-05-17 07:05] LABS: ANION GAP 9 mmol/L (8-16); CARBON DIOXIDE 27 mmol/L (22-29); CHLORIDE 100 mmol/L (98-107); GLOMERULAR FILTR. RATE CALC > 60 mL/min (>60); POTASSIUM 3.6 mmol/L (3.5-5.1); SODIUM SERUM 136 mmol/L (136-145); UREA NITROGEN, BLOOD 6 mg/dL (7-18)
[2017-05-17] MEDS: AMINO ACIDS/PROTEIN HYDROLYS 30 ML TUBE PO SCH ×2 (08:00→12:19)
[2017-05-17] MEDS: VANCOMYCIN HCL 1.5 GM in DEXTROSE 5%-WATER 250 ML IV SCH ×2 (08:48→20:37)
[2017-05-17] MEDS: MULTIVITAMINS WITH MINERALS, THERAPEUTIC 15 ML UDCUP PEG SCH (08:56)
[2017-05-17] MEDS: LANSOPRAZOLE 30 MG SOLUBLE TABLET GT SCH (08:56)
[2017-05-17] MEDS: ASPIRIN 81 MG CHEWABLE TABLET PO SCH (08:56)
[2017-05-17] MEDS: ACETAMINOPHEN 650 MG/20.3 ML SOLUTION UDCUP GT PRN (09:18)
[2017-05-17] MEDS: IPRATROPIUM BROMIDE 0.5 MG/2.5 ML NEB SOLUTION NEB SCH ×3 (09:41→20:25)
[2017-05-17] MEDS: ALBUTEROL SULFATE 2.5 MG/0.5 ML NEB SOLUTION NEB SCH ×3 (09:41→20:26)
[2017-05-17 13:47] LABS: GLUCOSE COMMENT 1 Received Meds; GLUCOSE,POINT OF CARE 259 MG/DL (70-110)
[2017-05-17] MEDS ORDERED: ETOMIDATE 2 MG/ML 10 ML VIAL IVP ONE (17:39)
[2017-05-17] MEDS ORDERED: VECURONIUM BROMIDE 10 MG/VIAL IVP ONE (17:39)
[2017-05-17] MEDS ORDERED: SODIUM CHLORIDE 0.9% 250 ML IV ONE (18:36)
[2017-05-17 20:18] LABS: GLUCOSE,POINT OF CARE 191 MG/DL (70-110)
[2017-05-18 00:04] VITALS: BP 123/67
[2017-05-18] MEDS: PIPERACILLIN/TAZO 3.375 GM/D5W 50 ML IV SCH ×5 (01:33→23:46)
[2017-05-18 03:56] VITALS: BP 139/76
[2017-05-18] MEDS: INSULIN ASPART 100 UNITS/ML SQ PRN ×4 (05:22→23:47)
[2017-05-18] MEDS: VANCOMYCIN HCL 125 MG/2.5 ML SOLUTION ORAL.SYG PO SCH ×4 (05:22→23:46)
[2017-05-18 06:48] LABS: GLUCOSE COMMENT 1 Received Meds; GLUCOSE,POINT OF CARE 238 MG/DL (70-110)
[2017-05-18 07:21] LABS: ANION GAP 5 mmol/L (8-16); CALCIUM, TOTAL 8.8 mg/dL (8.8-10.5); CARBON DIOXIDE 31 mmol/L (22-29); CHLORIDE 100 mmol/L (98-107); CREATININE 0.54 mg/dL (0.60-1.30); GLOMERULAR FILTR. RATE CALC > 60 mL/min (>60); POTASSIUM 3.1 mmol/L (3.5-5.1); SODIUM SERUM 136 mmol/L (136-145); UREA NITROGEN, BLOOD 7 mg/dL (7-18)
[2017-05-18] MEDS: VANCOMYCIN HCL 1.5 GM in DEXTROSE 5%-WATER 250 ML IV SCH ×2 (07:53→20:44)
[2017-05-18 07:57] VITALS: BP 150/84
[2017-05-18] MEDS: POTASSIUM CHLORIDE 20 MEQ ER TABLET PO PRN (08:04)
[2017-05-18] MEDS: ASPIRIN 81 MG CHEWABLE TABLET PO SCH (08:05)
[2017-05-18] MEDS: MULTIVITAMINS WITH MINERALS, THERAPEUTIC 15 ML UDCUP PEG SCH (08:05)
[2017-05-18] MEDS: LANSOPRAZOLE 30 MG SOLUBLE TABLET GT SCH (08:05)
[2017-05-18] MEDS: IPRATROPIUM BROMIDE 0.5 MG/2.5 ML NEB SOLUTION NEB SCH ×4 (08:17→23:21)
[2017-05-18] MEDS: ALBUTEROL SULFATE 2.5 MG/0.5 ML NEB SOLUTION NEB SCH ×4 (08:17→23:21)
[2017-05-18] MEDS: AMINO ACIDS/PROTEIN HYDROLYS 30 ML TUBE PO SCH ×2 (08:20→13:17)
[2017-05-18 10:20] LABS: BASOPHILS % (AUTO) 0.4 % (0.0-2.0); EOSINOPHILS % (AUTO) 2.5 % (1.0-6.0); HEMATOCRIT 39.9 % (41-53); HEMOGLOBIN 13.2 g/dL (13.5-17.5); LYMPHOCYTES # (AUTO) 1.7 K/uL (1.0-4.8); LYMPHOCYTES % (AUTO) 14.5 % (22.0-44.0); MEAN CORPUSCULAR HEMOGLOBIN 29.8 pg (26.0-34.0); MEAN CORPUSCULAR HGB CONC 33.1 G/dL (31.0-37.0); MEAN CORPUSCULAR VOLUME 90 fL (80-100); MONOCYTES # (AUTO) 0.7 K/uL (0.1-1.0); MONOCYTES % (AUTO) 5.8 % (2.0-9.0); NEUTROPHILS # (AUTO) 9.3 K/uL (1.8-7.7); NEUTROPHILS % (AUTO) 76.8 % (40.0-70.0); PLATELET COUNT (AUTO) 574 K/uL (150-450); RED BLOOD CELL COUNT(AUTO) 4.43 MIL/uL (4.50-5.90); RED CELL DISTRIBUTION WIDTH 15.8 % (11.5-14.5); WHITE BLOOD COUNT (AUTO) 12.1 K/uL (4.5-11.0)
[2017-05-18 12:31] VITALS: BP 147/96
[2017-05-18 15:03] LABS: GLUCOSE,POINT OF CARE 268 MG/DL (70-110)
[2017-05-18 15:03] LABS: GLUCOSE COMMENT 1 Received Meds; GLUCOSE,POINT OF CARE 263 MG/DL (70-110)
[2017-05-18 15:34] VITALS: BP 145/83
[2017-05-18 19:48] VITALS: BP 140/88
[2017-05-18] MEDS: ACETYLCYSTEINE 10% 100 MG/ML 4 ML NEB SOLUTION NEB SCH (20:57)
[2017-05-19] VITALS (7 sets, daily range): BP systolic 124–162; BP diastolic 75–96
[2017-05-19] MEDS ORDERED: SODIUM CHLORIDE 0.9% 250 ML IV ONE ×2 (02:13→21:06)
[2017-05-19] MEDS: POTASSIUM CHL 10 MEQ/WATER 50 ML IV PRN ×3 (02:20→14:49)
[2017-05-19] MEDS: IPRATROPIUM BROMIDE 0.5 MG/2.5 ML NEB SOLUTION NEB SCH ×6 (03:52→23:27)
[2017-05-19] MEDS: ALBUTEROL SULFATE 2.5 MG/0.5 ML NEB SOLUTION NEB SCH ×6 (03:52→23:26)
[2017-05-19] MEDS: VANCOMYCIN HCL 125 MG/2.5 ML SOLUTION ORAL.SYG PO SCH ×3 (06:44→18:02)
[2017-05-19] MEDS: PIPERACILLIN/TAZO 3.375 GM/D5W 50 ML IV SCH ×3 (06:45→18:03)
[2017-05-19] MEDS: INSULIN ASPART 100 UNITS/ML SQ PRN ×3 (06:45→18:07)
[2017-05-19] MEDS: ACETYLCYSTEINE 10% 100 MG/ML 4 ML NEB SOLUTION NEB SCH ×2 (07:55→20:31)
[2017-05-19] MEDS: AMINO ACIDS/PROTEIN HYDROLYS 30 ML TUBE PO SCH ×2 (08:32→12:00)
[2017-05-19] MEDS: VANCOMYCIN HCL 1.5 GM in DEXTROSE 5%-WATER 250 ML IV SCH ×2 (08:32→21:14)
[2017-05-19] MEDS: MULTIVITAMINS WITH MINERALS, THERAPEUTIC 15 ML UDCUP PEG SCH (08:33)
[2017-05-19] MEDS: ASPIRIN 81 MG CHEWABLE TABLET PO SCH (08:35)
[2017-05-19] MEDS: LANSOPRAZOLE 30 MG SOLUBLE TABLET GT SCH (08:35)
[2017-05-19 08:41] LABS: ANION GAP 6 mmol/L (8-16); CARBON DIOXIDE 29 mmol/L (22-29); CHLORIDE 98 mmol/L (98-107); CREATININE 0.57 mg/dL (0.60-1.30); GLOMERULAR FILTR. RATE CALC > 60 mL/min (>60); POTASSIUM 3.8 mmol/L (3.5-5.1); SODIUM SERUM 133 mmol/L (136-145); UREA NITROGEN, BLOOD 10 mg/dL (7-18)
[2017-05-19 13:11] LABS: ALLEN TEST, BLOOD GAS POS; TEMPERATURE, FAHRENHEIT, BG 98.6 FAHREN (96.0-98.6)
[2017-05-19 13:17] LABS: ABG BASE EXCESS 5.2 mmol/L (-2.0-3.0); ABG HCO3 29.1 mmol/L (22.0-26.0); ABG OXYHEMOGLOBIN 93.9 % (94.0-100.0); ABG PCO2 35 mmHg (35-45); ABG PH 7.517 (7.35-7.450)
[2017-05-19 13:18] LABS: ABG A-A DIFF O2 151.5 mmHg (10-20.0)
[2017-05-19] MEDS ORDERED: [UNRECOGNIZED DRUG - CODE] NEB (15:15)
[2017-05-19] MEDS ORDERED: AMIN30LI28 PO ×2 (15:16)
[2017-05-19] MEDS ORDERED: IPRNEB IH (15:18)
[2017-05-19] MEDS ORDERED: LANS30 GT (15:19)
[2017-05-19] MEDS ORDERED: MULT1CAP32 PO (15:23)
[2017-05-19] MEDS ORDERED: [UNRECOGNIZED DRUG - CODE] IV (15:33)
[2017-05-19] MEDS ORDERED: VANC1IV IV (15:35)
[2017-05-19] MEDS ORDERED: ACET-784 PO (15:37)
[2017-05-19] MEDS ORDERED: BISA5TAB12 PO (15:41)
[2017-05-19] MEDS ORDERED: MOM30 PO (15:42)
[2017-05-19] MEDS ORDERED: MORP2CAR IVP (15:42)
[2017-05-19] MEDS ORDERED: HYDR-309 GT (15:43)
[2017-05-19] MEDS ORDERED: INSNOV SQ (15:45)
[2017-05-19] MEDS ORDERED: ONDA4VIA30 IVP (15:46)
[2017-05-19 20:03] LABS: GLUCOSE COMMENT 1 Received Meds; GLUCOSE,POINT OF CARE 256 MG/DL (70-110)
[2017-05-20] MEDS: PIPERACILLIN/TAZO 3.375 GM/D5W 50 ML IV SCH ×4 (00:10→17:11)
[2017-05-20] MEDS: VANCOMYCIN HCL 125 MG/2.5 ML SOLUTION ORAL.SYG PO SCH ×4 (00:10→17:12)
[2017-05-20] MEDS: INSULIN ASPART 100 UNITS/ML SQ PRN ×4 (00:12→17:13)
[2017-05-20] MEDS: ALBUTEROL SULFATE 2.5 MG/0.5 ML NEB SOLUTION NEB SCH ×4 (03:52→15:20)
[2017-05-20] MEDS: IPRATROPIUM BROMIDE 0.5 MG/2.5 ML NEB SOLUTION NEB SCH ×4 (03:52→15:20)
[2017-05-20 04:02] LABS: GLUCOSE COMMENT 1 Received Meds; GLUCOSE,POINT OF CARE 327 MG/DL (70-110)
[2017-05-20 04:17] LABS: GLUCOSE COMMENT 1 Received Meds; GLUCOSE,POINT OF CARE 290 MG/DL (70-110)
[2017-05-20 04:17] LABS: GLUCOSE COMMENT 1 Received Meds; GLUCOSE,POINT OF CARE 250 MG/DL (70-110)
[2017-05-20 04:18] LABS: GLUCOSE COMMENT 1 Received Meds; GLUCOSE,POINT OF CARE 356 MG/DL (70-110)
[2017-05-20 04:18] LABS: GLUCOSE COMMENT 1 Received Meds; GLUCOSE,POINT OF CARE 300 MG/DL (70-110)
[2017-05-20 05:08] VITALS: BP 141/92
[2017-05-20 06:26] LABS: ANION GAP 6 mmol/L (8-16); CALCIUM, TOTAL 9.4 mg/dL (8.8-10.5); CARBON DIOXIDE 30 mmol/L (22-29); CHLORIDE 98 mmol/L (98-107); CREATININE 0.58 mg/dL (0.60-1.30); GLOMERULAR FILTR. RATE CALC > 60 mL/min (>60); POTASSIUM 3.7 mmol/L (3.5-5.1); SODIUM SERUM 134 mmol/L (136-145); UREA NITROGEN, BLOOD 9 mg/dL (7-18)
[2017-05-20 07:22] LABS: GLUCOSE COMMENT 1 Received Meds; GLUCOSE,POINT OF CARE 313 MG/DL (70-110)
[2017-05-20] MEDS: ACETYLCYSTEINE 10% 100 MG/ML 4 ML NEB SOLUTION NEB SCH (07:30)
[2017-05-20 07:41] VITALS: BP 138/83
[2017-05-20] MEDS: AMINO ACIDS/PROTEIN HYDROLYS 30 ML TUBE PO SCH ×3 (08:00→12:01)
[2017-05-20] MEDS: LANSOPRAZOLE 30 MG SOLUBLE TABLET GT SCH (08:24)
[2017-05-20] MEDS: MULTIVITAMINS WITH MINERALS, THERAPEUTIC 15 ML UDCUP PEG SCH (08:24)
[2017-05-20] MEDS: ASPIRIN 81 MG CHEWABLE TABLET PO SCH (08:24)
[2017-05-20] MEDS: VANCOMYCIN HCL 1.5 GM in DEXTROSE 5%-WATER 250 ML IV SCH (09:32)
[2017-05-20 12:19] VITALS: BP 138/83
[2017-05-20 16:18] VITALS: BP 128/83
[2017-05-21 02:33] LABS: GLUCOSE,POINT OF CARE 279 MG/DL (70-110)
[2017-05-21 02:33] LABS: GLUCOSE,POINT OF CARE 318 MG/DL (70-110)
== END 2017-05-20 19:00 | DRG 871 ==
LOC: EMS 23:27 → ICU 05-13 11:18 → 5S 05-17 13:10
PROVIDERS: ADMIT Internal Medicine; ATTEND Internal Medicine
PROC: 5A1945Z Respiratory Ventilation, 24-96 Consecutive Hours (ICD-10-PCS; principal; 2017-05-13)
PROC: 0BH17EZ Insertion of Endotracheal Airway into Trachea, Via Natural or Artificial Opening (ICD-10-PCS; 2017-05-13)
DX: A41.9 Sepsis, unspecified organism (principal); J96.01 Acute respiratory failure with hypoxia; E43 Unspecified severe protein-calorie malnutrition; I11.0 Hypertensive heart disease with heart failure; L89.153 Pressure ulcer of sacral region, stage 3; I50.20 Unspecified systolic (congestive) heart failure; Z68.1 Body mass index [BMI] 19.9 or less, adult; R62.7 Adult failure to thrive; E11.65 Type 2 diabetes mellitus with hyperglycemia; Z86.73 Personal history of transient ischemic attack (TIA), and cerebral infarction without residual deficits; I25.10 Atherosclerotic heart disease of native coronary artery without angina pectoris; F25.9 Schizoaffective disorder, unspecified; F31.9 Bipolar disorder, unspecified; F17.210 Nicotine dependence, cigarettes, uncomplicated; H54.7 Unspecified visual loss; K21.9 Gastro-esophageal reflux disease without esophagitis; N40.0 Benign prostatic hyperplasia without lower urinary tract symptoms; R13.10 Dysphagia, unspecified; Z93.1 Gastrostomy status; Z87.440 Personal history of urinary (tract) infections; Z88.2 Allergy status to sulfonamides; Z79.4 Long term (current) use of insulin; Z79.51 Long term (current) use of inhaled steroids; Z79.899 Other long term (current) drug therapy
CPT/HCPCS: 31500; 51702; 82271; 82805; 82962; 83605; 83735; 84100; 84132; 85379; 87040; 87045; 87070; 87081; 87205; 87324; 87449; 93005; 94002; 94003; 94640; 94799; 96365; 96375; 99291; J0131; J2250; J2543; J2704; J3370; J3480; J3490; J7030; J7050; J7060